=== PATIENT | female | born 1965 | race Caucasian/White ===

== ENCOUNTER 2020-04-01 10:53 | Outpatient (REF) | payer OTHER, SELFPAY | END 2020-04-01 10:54 | disposition home or self-care (01) | LOC: HO.LAB 10:53 | PROVIDERS: Visit Provider Internal Medicine | DX: Z20.828 Contact with and (suspected) exposure to other viral communicable diseases (principal) | CPT/HCPCS: C9803; U0003 ==

== ENCOUNTER 2020-07-11 11:32 | Outpatient (REF) | payer OTHER, SELFPAY ==
[2020-07-11 12:10] LABS: MANUAL DIFF FLAG NO
[2020-07-11 12:19] LABS: Basophils Percent Auto 0.2 % (0-2); Eosinophils Absolute Auto 0.1 X10*3/uL (0.0-0.4); Eosinophils Percent Auto 0.6 % (0-4); Hematocrit 34.1 % (37-47); Imm Gran Abs Auto 0.14 X10*3/uL (0.00-0.03); Imm Gran Pct Auto 1.7 % (0.0-0.4); Lymphocytes Absolute Auto 2.9 X10*3/uL (1.2-4.9); Lymphocytes Percent Auto 36.4 % (20-40); Mean Corpuscular HGB Conc 32.3 g/dl (31.0-35.0); Mean Corpuscular Hemoglobin 33.6 pg (27.0-33.0); Mean Corpuscular Volume 104.3 fL (80-98); Mean Platelet Volume 9.9 fL (9.4-12.3); Monocytes Absolute Auto 0.4 X10*3/uL (0.1-1.2); Monocytes Percent Auto 4.6 % (2-11); Neutrophils Absolute Auto 4.6 X10*3/uL (2.0-8.3); Neutrophils Percent Auto 56.5 % (45-73); Platelet Count 292 X10*3/uL (160-400); Red Blood Count 3.27 X10*6/uL (4.20-5.50); Red Cell Distribution Width 14.8 % (11.0-16.0); White Blood Count 8.1 X10*3/uL (4.8-10.8)
[2020-07-11 12:45] LABS: Glucose Urine UA NEG (NEG); Leukocyte Esterase Urine NEG (NEG); Nitrite Urine NEG (NEG); PH 5.5 (5.0-8.0); Specific Gravity - Urine 1.025 (1.005-1.025); Urine Blood NEG (NEG); Urine Ketones NEG (NEG); Urine Protein NEG (NEG-TRACE)
[2020-07-11 12:48] LABS: Appearance Urine HAZY; Color Urine YELLOW
[2020-07-11 13:34] LABS: Carbon Dioxide 29 mmol/L (22-29); Chloride 98 mmol/L (96-108); Potassium 4.5 mmol/L (3.3-5.1); Sodium 136 mmol/L (135-145)
[2020-07-11 13:35] LABS: Alanine Aminotransferase 22 U/L (0-31); Albumin Level 4.9 g/dL (3.5-5.0); Alkaline Phosphatase 59 U/L (39-117); Anion Gap 14 (12-20); Aspartate Amino Transferase 44 U/L (5-31); Bilirubin Total 0.6 mg/dL (0.0-1.0); Blood Urea Nitrogen 18 mg/dL (9-16); Calcium 9.6 mg/dL (8.4-10.2); Cholesterol 386 mg/dL; Estimated Glomerular Filt Rate 49; Glucose Fasting 87 mg/dL (60-99); HDL Cholesterol 101 mg/dL; LDL Cholesterol Calculated 258 mg/dl; Total Protein 7.5 g/dL (6.5-8.0); Triglycerides 137 mg/dL
[2020-07-11 13:39] LABS: Folate 7.4 ng/mL (> or = 4.0); Vitamin B12 231 pg/mL (200-900)
[2020-07-11 14:26] LABS: Free T4 (Free Thyroxine) < 0.40 ng/dL (0.71-1.85); Vitamin D 25-OH Total < 3.4 ng/mL (>30)
[2020-07-11 14:34] LABS: Thyroid Stimulating Hormone > 100.00 uIU/mL (0.32-4.0)
== END 2020-07-11 11:33 | disposition home or self-care (01) ==
LOC: HO.LAB 11:32
PROVIDERS: PCP Internal Medicine; Visit Provider Internal Medicine
DX: E66.9 Obesity, unspecified (principal); E78.00 Pure hypercholesterolemia, unspecified; E03.9 Hypothyroidism, unspecified; E55.9 Vitamin D deficiency, unspecified; R53.83 Other fatigue; R20.2 Paresthesia of skin; F17.200 Nicotine dependence, unspecified, uncomplicated
CPT/HCPCS: 36415; 80053; 80061; 81003; 82306; 82607; 82746; 84439; 84443; 85025

== ENCOUNTER 2020-10-14 09:32 | Outpatient (REF) | payer OTHER, SELFPAY ==
[2020-10-14 10:07] LABS: MANUAL DIFF FLAG NO
[2020-10-14 10:14] LABS: Basophils Percent Auto 0.3 % (0-2); Eosinophils Absolute Auto 0.1 X10*3/uL (0.0-0.4); Eosinophils Percent Auto 0.9 % (0-4); Hemoglobin 11.8 g/dl (12.0-16.0); Imm Gran Abs Auto 0.02 X10*3/uL (0.00-0.03); Imm Gran Pct Auto 0.3 % (0.0-0.4); Lymphocytes Absolute Auto 2.2 X10*3/uL (1.2-4.9); Lymphocytes Percent Auto 38.1 % (20-40); Mean Corpuscular HGB Conc 32.8 g/dl (31.0-35.0); Mean Corpuscular Hemoglobin 30.7 pg (27.0-33.0); Mean Corpuscular Volume 93.8 fL (80-98); Mean Platelet Volume 10.4 fL (9.4-12.3); Monocytes Absolute Auto 0.4 X10*3/uL (0.1-1.2); Monocytes Percent Auto 6.8 % (2-11); Neutrophils Absolute Auto 3.1 X10*3/uL (2.0-8.3); Neutrophils Percent Auto 53.6 % (45-73); Platelet Count 325 X10*3/uL (160-400); Red Blood Count 3.84 X10*6/uL (4.20-5.50); Red Cell Distribution Width 13.5 % (11.0-16.0); White Blood Count 5.7 X10*3/uL (4.8-10.8)
[2020-10-14 10:33] LABS: Alanine Aminotransferase 9 U/L (0-31); Albumin Level 4.1 g/dL (3.5-5.0); Alkaline Phosphatase 84 U/L (39-117); Anion Gap 15 (12-20); Aspartate Amino Transferase 18 U/L (5-31); Bilirubin Total 0.5 mg/dL (0.0-1.0); Blood Urea Nitrogen 14 mg/dL (9-16); Calcium 9.7 mg/dL (8.4-10.2); Carbon Dioxide 26 mmol/L (22-29); Chloride 102 mmol/L (96-108); Cholesterol 209 mg/dL; Estimated Glomerular Filt Rate > 60; Glucose Fasting 95 mg/dL (60-99); HDL Cholesterol 71 mg/dL; Iron 82 mcg/dL (30-160); LDL Cholesterol Calculated 121 mg/dl; Percent Iron Saturation 22 % (15-50); Potassium 4.5 mmol/L (3.3-5.1); Sodium 138 mmol/L (135-145); Total Iron Binding Capacity 366 mcg/dL (228-428); Total Protein 6.8 g/dL (6.5-8.0); Triglycerides 88 mg/dL; Unsaturated Iron Binding 284 ug/dL
[2020-10-14 10:57] LABS: Free T4 (Free Thyroxine) 1.28 ng/dL (0.71-1.85); Thyroid Stimulating Hormone 0.85 uIU/mL (0.32-4.0)
[2020-10-14 11:39] LABS: Folate 12.1 ng/mL (> or = 4.0); Vitamin B12 < 146 pg/mL (200-900)
[2020-10-15 09:36] LABS: Erythropoietin (EPO) 25.4 mIU/mL (2.6-18.5)
== END 2020-10-14 09:33 | disposition home or self-care (01) ==
LOC: HO.LAB 09:32
PROVIDERS: PCP Internal Medicine; Visit Provider Internal Medicine
DX: D53.9 Nutritional anemia, unspecified (principal); E03.9 Hypothyroidism, unspecified; E66.9 Obesity, unspecified; E78.00 Pure hypercholesterolemia, unspecified; N28.9 Disorder of kidney and ureter, unspecified; F17.200 Nicotine dependence, unspecified, uncomplicated
CPT/HCPCS: 36415; 80053; 80061; 82607; 82668; 82746; 83540; 84439; 84443; 85025

== ENCOUNTER 2020-11-04 08:11 | Outpatient (REF) | payer OTHER, SELFPAY ==
--- NOTE | ~2020-11-04 | MM_ITS ---
EXAMINATION: MM SCREENING DIGITAL BREAST TOMOSYNTHESIS, BILATERAL CLINICAL INFORMATION: Screening. Asymptomatic. The lifetime risk of breast cancer based on the Tyrer-Cuzick Model is 8%. COMPARISON: Mammography: 10/30/2019, 04/15/2016 TECHNIQUE: Digital breast tomosynthesis is performed in both the craniocaudal and mediolateral oblique views along with computer-aided detection (CAD). Synthesized 2D images are generated from the tomosynthesis. FINDINGS: There are scattered areas of fibroglandular density (ACR BI-RADS breast composition Category b). There are no significant masses, abnormal calcifications, or other abnormalities. Parenchymal pattern is similar to prior studies. No significant changes. MM/MM tomosynthesis screening BI IMPRESSION: No mammographic evidence of malignancy. ASSESSMENT: BI-RADS 1: Negative RECOMMENDATION: Routine annual mammography screening. This patient's information was entered into a reminder system with a target due date for their next mammogram.
== END 2020-11-04 08:12 | disposition home or self-care (01) ==
LOC: HO.MAMMO 08:11
PROVIDERS: PCP Internal Medicine; Visit Provider Internal Medicine
DX: Z12.31 Encounter for screening mammogram for malignant neoplasm of breast (principal)
CPT/HCPCS: 77063; 77067

== ENCOUNTER 2021-03-12 11:53 | Outpatient (REF) | payer OTHER, SELFPAY ==
[2021-03-12 12:04] LABS: MANUAL DIFF FLAG NO
[2021-03-12 12:28] LABS: Basophils Percent Auto 0.3 % (0-2); Eosinophils Absolute Auto 0.1 X10*3/uL (0.0-0.4); Eosinophils Percent Auto 1.6 % (0-4); Hematocrit 39.6 % (37.0-47.0); Hemoglobin 12.6 g/dl (12.0-16.0); Imm Gran Abs Auto 0.01 X10*3/uL (0.00-0.03); Imm Gran Pct Auto 0.2 % (0.0-0.4); Lymphocytes Percent Auto 47.7 % (20-40); Mean Corpuscular HGB Conc 31.8 g/dl (31.0-35.0); Mean Corpuscular Hemoglobin 29.1 pg (27.0-33.0); Mean Corpuscular Volume 91.5 fL (80.0-98.0); Monocytes Absolute Auto 0.5 X10*3/uL (0.1-1.2); Monocytes Percent Auto 7.9 % (2-11); Neutrophils Absolute Auto 2.6 x10*3/uL (2.0-8.3); Neutrophils Percent Auto 42.3 % (45-73); Platelet Count 316 X10*3/uL (160-400); Red Blood Count 4.33 X10*6/uL (4.20-5.50); Red Cell Distribution Width 14.1 % (11.0-16.0); White Blood Count 6.2 X10*3/uL (4.8-10.8)
[2021-03-12 12:55] LABS: Alanine Aminotransferase 14 U/L (0-31); Albumin Level 4.1 g/dL (3.5-5.0); Alkaline Phosphatase 78 U/L (39-117); Anion Gap 12 (12-20); Aspartate Amino Transferase 18 U/L (5-31); Bilirubin Total 0.3 mg/dL (0.0-1.0); Blood Urea Nitrogen 10 mg/dL (9-16); Calcium 9.8 mg/dL (8.4-10.2); Carbon Dioxide 27 mmol/L (22-29); Chloride 105 mmol/L (96-108); Cholesterol 251 mg/dL; Estimated Glomerular Filt Rate > 60; Glucose Fasting 98 mg/dL (60-99); HDL Cholesterol 82 mg/dL; LDL Cholesterol Calculated 153 mg/dl; Potassium 4.7 mmol/L (3.3-5.1); Sodium 139 mmol/L (135-145); Total Protein 6.8 g/dL (6.5-8.0); Triglycerides 82 mg/dL
[2021-03-12 13:14] LABS: Free T4 (Free Thyroxine) 1.32 ng/dL (0.71-1.85); Thyroid Stimulating Hormone 0.53 uIU/mL (0.32-4.0); Vitamin D 25-OH Total 61.9 ng/mL (>30)
[2021-03-12 13:24] LABS: Folate 7.2 ng/mL (> or = 4.0); Vitamin B12 575 pg/mL (200-900)
== END 2021-03-12 11:54 | disposition home or self-care (01) ==
LOC: HO.LAB 11:53
PROVIDERS: PCP Internal Medicine; Visit Provider Internal Medicine
DX: E55.9 Vitamin D deficiency, unspecified (principal); E03.9 Hypothyroidism, unspecified; D53.9 Nutritional anemia, unspecified; E53.8 Deficiency of other specified B group vitamins; E78.00 Pure hypercholesterolemia, unspecified
CPT/HCPCS: 36415; 80053; 80061; 82306; 82607; 82746; 84439; 84443; 85025

== ENCOUNTER 2021-07-18 09:51 | Outpatient (REF) | payer OTHER, SELFPAY ==
[2021-07-18 10:12] LABS: MANUAL DIFF FLAG NO
[2021-07-18 10:26] LABS: Basophils Percent Auto 0.3 % (0-2); Eosinophils Absolute Auto 0.1 X10*3/uL (0.0-0.4); Eosinophils Percent Auto 1.1 % (0-4); Hematocrit 41.2 % (37.0-47.0); Hemoglobin 13.5 g/dl (12.0-16.0); Imm Gran Abs Auto 0.01 X10*3/uL (0.00-0.03); Imm Gran Pct Auto 0.2 % (0.0-0.4); Lymphocytes Absolute Auto 2.3 X10*3/uL (1.2-4.9); Lymphocytes Percent Auto 34.9 % (20-40); Mean Corpuscular HGB Conc 32.8 g/dl (31.0-35.0); Mean Corpuscular Hemoglobin 29.3 pg (27.0-33.0); Mean Corpuscular Volume 89.4 fL (80.0-98.0); Mean Platelet Volume 10.5 fL (9.4-12.3); Monocytes Absolute Auto 0.3 X10*3/uL (0.1-1.2); Monocytes Percent Auto 5.1 % (2-11); Neutrophils Absolute Auto 3.8 x10*3/uL (2.0-8.3); Neutrophils Percent Auto 58.4 % (45-73); Platelet Count 330 X10*3/uL (160-400); Red Blood Count 4.61 X10*6/uL (4.20-5.50); Red Cell Distribution Width 13.8 % (11.0-16.0); White Blood Count 6.5 X10*3/uL (4.8-10.8)
[2021-07-18 10:47] LABS: Appearance Urine CLEAR; Color Urine YELLOW; Glucose Urine UA NEG (NEG); Leukocyte Esterase Urine NEG (NEG); Nitrite Urine NEG (NEG); Urine Blood NEG (NEG); Urine Ketones 5 MG/DL (NEG); Urine Protein NEG (NEG-TRACE)
[2021-07-18 11:37] LABS: HDL Cholesterol 82 mg/dL
[2021-07-18 11:41] LABS: Alanine Aminotransferase 19 U/L (0-31); Albumin Level 4.2 g/dL (3.5-5.0); Alkaline Phosphatase 93 U/L (39-117); Anion Gap 13 (12-20); Aspartate Amino Transferase 21 U/L (5-31); Bilirubin Total 0.6 mg/dL (0.0-1.0); Blood Urea Nitrogen 10 mg/dL (9-16); Calcium 9.9 mg/dL (8.4-10.2); Carbon Dioxide 26 mmol/L (22-29); Chloride 104 mmol/L (96-108); Cholesterol 274 mg/dL; Estimated Glomerular Filt Rate > 60; Glucose Fasting 117 mg/dL (60-99); LDL Cholesterol Calculated 174 mg/dl; Potassium 4.8 mmol/L (3.3-5.1); Sodium 138 mmol/L (135-145); Triglycerides 90 mg/dL
[2021-07-18 11:43] LABS: Folate 8.9 ng/mL (> or = 4.0); Vitamin B12 576 pg/mL (200-900)
[2021-07-18 11:50] LABS: Free T4 (Free Thyroxine) 1.25 ng/dL (0.71-1.85); Thyroid Stimulating Hormone 1.39 uIU/mL (0.32-4.0); Vitamin D 25-OH Total 72.8 ng/mL (>30)
== END 2021-07-18 09:52 | disposition home or self-care (01) ==
LOC: HO.LAB 09:51
PROVIDERS: PCP Internal Medicine; Visit Provider Internal Medicine
DX: E78.00 Pure hypercholesterolemia, unspecified (principal); E03.9 Hypothyroidism, unspecified; E53.8 Deficiency of other specified B group vitamins; E55.9 Vitamin D deficiency, unspecified; I10 Essential (primary) hypertension
CPT/HCPCS: 36415; 80053; 80061; 81003; 82306; 82607; 82746; 84439; 84443; 85025

== ENCOUNTER 2021-07-29 11:04 | Outpatient (REF) | payer OTHER, SELFPAY | END 2021-07-29 11:05 | disposition home or self-care (01) | LOC: HO.LAB 11:04 | PROVIDERS: PCP Internal Medicine; Visit Provider Obstetrics & Gynecology | DX: N90.89 Other specified noninflammatory disorders of vulva and perineum (principal) | CPT/HCPCS: 56605; 56606; 88304; 88305; 88312; 99202 ==

== ENCOUNTER → 2021-08-01 10:50 | Outpatient (BNVA) | payer OTHER, SELFPAY | PROVIDERS: PCP Internal Medicine; Referring Provider Internal Medicine; Visit Provider Nurse Practitioner | DX: Z12.11 Encounter for screening for malignant neoplasm of colon (principal); D12.6 Benign neoplasm of colon, unspecified | CPT/HCPCS: 99202 ==

== ENCOUNTER → 2021-08-05 10:18 | Outpatient (BNVA) | payer OTHER, SELFPAY | PROVIDERS: PCP Internal Medicine; Visit Provider Obstetrics & Gynecology | DX: L28.0 Lichen simplex chronicus (principal) | CPT/HCPCS: 99212 ==

== ENCOUNTER 2021-11-06 09:12 | Outpatient (REF) | payer OTHER, SELFPAY ==
--- NOTE | ~2021-11-06 | MM_ITS ---
EXAMINATION: MM SCREENING DIGITAL BREAST TOMOSYNTHESIS, BILATERAL CLINICAL INFORMATION: Screening. Asymptomatic. The lifetime risk of breast cancer based on the Tyrer-Cuzick Model is 4%. COMPARISON: Mammography: 11/04/2020, 10/30/2019, 04/15/2016 TECHNIQUE: Digital breast tomosynthesis is performed in both the craniocaudal and mediolateral oblique views along with computer-aided detection (CAD). Synthesized 2D images are generated from the tomosynthesis. FINDINGS: There are scattered areas of fibroglandular density (ACR BI-RADS breast composition Category b). There are no significant masses, abnormal calcifications, or other abnormalities. Parenchymal pattern is similar to prior studies. The axilla and skin contours are unremarkable. MM/MM tomosynthesis screening BI IMPRESSION: No mammographic evidence of malignancy. ASSESSMENT: BI-RADS 1: Negative RECOMMENDATION: Routine annual mammography screening. This patient's information was entered into a reminder system with a target due date for their next mammogram.
== END 2021-11-06 09:13 | disposition home or self-care (01) ==
LOC: HO.MAMMO 09:12
PROVIDERS: Visit Provider Internal Medicine
DX: Z12.31 Encounter for screening mammogram for malignant neoplasm of breast (principal)
CPT/HCPCS: 77063; 77067

== ENCOUNTER 2021-11-18 11:08 | Day surgery (SDC) | payer OTHER, SELFPAY ==
[2021-11-12 14:33] VITALS: BMI 24.0
[2021-11-18 11:18] VITALS: BMI 22.7
--- NOTE | 2021-11-18 11:25 | MHC.SHP ---
Pre-Procedural Eval Section A Date of Service: 11/18/21 Section B Chief Complaint: Benign neoplasm of colon,screening Relevant Family History (Specify if Yes): No Relevant Social History: Tobacco Use Present Medications: see Short Stay Collaborative assessment Medical History: Significant History (Obesity High cholesterol Hypothyroid Renal insufficiency Macrocytic anemia with B12 deficiency Paresthesias Smoker) History of Previous Operations: Relevant previous surgery/procedure and date(s) (Hx of bariatric surgery Status post total abdominal hysterectomy and bilateral salpingo-oophorectomy (TAE-BSO)) Allergies: Allergies Allergy/AdvReac Type Severity Reaction Status Date / Time aspirin [ASA] Allergy Severe DIFFICULTY Verified 10/31/21 10:00 BREATHING procaine [From Novocain] Allergy Severe DIFFICULTY Verified 10/31/21 10:00 BREATHING novacaine Allergy Severe breathing Uncoded 10/31/21 10:00 difficulty Novocain Allergy Severe breathing Uncoded 10/31/21 10:00 difficulty Review of Systems Sugical H&P ROS: Negative: Constitution, Cardiovascular, Respiratory, Neurological, Psychiatric, Hem-Onc, Allergic/Immunologic, Gastrointestinal, Genitourinary, Musculoskeletal, Integumentary, Endocrine and Eyes/Ears/Nose/Throat Exam Surgical H&P Exam: Normal: HEENT, Normal: Heart, Normal: Lungs, Normal: Extremities, Normal: Abdomen, Normal: Skin and Normal: Neurological Plan Diagnosis/Plan: Unchanged I have reviewed the history and physical and performed a pertinent physical examination on my patient. No changes have occurred unless specified.
[2021-11-18] MEDS: Lactated Ringers 1,000 ML 50 ML IVCONT (11:38)
[2021-11-18 11:39] VITALS: BP 126/72; PULSE 77; RESP 16; TEMP 36.4; O2SAT 99
--- NOTE | 2021-11-18 12:27 | W.PM.OPN ---
Operative Note Operative Note Date of Service: 11/18/21 Narrative: Operative Information Procedure Description: Colonoscopy Indication: screening, hx of colon polyps Anesthesia: MAC COLONOSCOPY Instrument: Olympus variable stiffness pediatric scope 190L Colonoscopy Monitoring: Vital signs and clinical assessment, continuous EKG monitoring, Pulse oximetry, Carbon Dioxide monitoring and blood pressure monitoring were done throughout the procedure. Colon withdrawal time was 15 minutes. Procedure: The patient was placed in the left lateral decubitis position and pre-procedure medications were administered. After a digital rectal examination of the ano-rectum, the video colonoscope was inserted into the rectum and advanced through the colon to the cecum/TI. The colonoscope was slowly withdrawn in a retrograde panoramic fashion and the colon mucosa was carefully examined including a retroflexed view of the rectum. Findings and interventions are described below. Procedure Difficulty: moderate due to looping Findings: Terminal Ileum-normal Cecum:normal Ascending Colon: 10 mm sessile polyp removed with cold snare but not retrieved Transverse Colon -normal Descending Colon: x 2 sessile polyps 10-12 mm removed with cold snare, Sigmoid Colon: x1 sessile polyp 12 mm removed with cold snare Rectum: Retroflexion with small internal hemorrhoids, grade I Anorectum - normal Colon preparation: [place] Bowel Preparation Scale Right colon; 2 Transverse colon: 2 Left colon; 2 (0 = Unprepared colon segment with mucosa not seen due to solid stool that cannot be cleared. 1 = Portion of mucosa of the colon segment seen, but other areas of the colon segment not well seen due to staining, residual stool and/or opaque liquid. 2 = Minor amount of residual staining, small fragments of stool and/or opaque liquid, but mucosa of colon segment seen well. 3 = Entire mucosa of colon segment seen well with no residual staining, small fragments of stool or opaque liquid) Impression and Post Procedure Diagnosis: polyps internal hemorrhoids Plan: High fiber diet leaflet Avoid straining at stool, epsom salts and sitz bath, anusol supps or cream Repeat Colonoscopy in 3-4 years or earlier if clinically indicated Above findings were reviewed with the patient and relevant handouts were provided if indicated.
--- NOTE | 2021-11-18 12:33 | P.CONAN_ITS ---
HPI - Anesthesia Eval Consult details Narrative: 56 F for colonoscopy [facility] Active Problems Active Problems: All Active Problems (Updated 10/31/21 @ 10:43 by Bharath Herndon MD) Fasting hyperglycemia (Acute) Tubular adenoma of colon (Acute) Lichen simplex chronicus (Acute) Vulvar lesion (Acute) Vaginal cysts (Acute) Onychomycosis (Acute) Overweight (BMI 25.0-29.9) (Acute) Colon cancer screening (Acute) Annual physical exam (Acute) Vitamin B12 deficiency (Acute) Macrocytic anemia (Acute) Renal insufficiency (Acute) Paresthesia (Acute) Fatigue (Acute) Obesity (BMI 30.0-34.9) (Acute) Smoker (Acute) Vitamin D deficiency (Acute) Pure hypercholesterolemia (Acute) Acquired hypothyroidism (Acute) Past Medical History Medical History Acquired hypothyroidism Fatigue Macrocytic anemia Obesity (BMI 30.0-34.9) Onychomycosis Overweight (BMI 25.0-29.9) Paresthesia Pure hypercholesterolemia Renal insufficiency Smoker Vitamin B12 deficiency Vitamin D deficiency Family History Family History Father Myocardial infarction Cardiovascular disease Stroke Mother Hypertension Paternal Grandfather Myocardial infarction Maternal Aunt Breast cancer Family history of problems with anesthesia: No Surgical History Surgical History (Updated 11/18/21 @ 12:43 by Yola Wu RN) Hx of bariatric surgery Hx of colonoscopy Status post total abdominal hysterectomy and bilateral salpingo-oophorectomy (TAE-BSO) History of Problems with Anesthesia: No Social History Social History Housing: Apartment Alcohol intake: current Alcohol intake frequency: holidays/special occasions only Patient Tobacco Use Status: Current everyday Tobacco user Cigarettes Per Day: 4 Second Hand Smoke Exposure: Yes Use of substances other than those prescribed or required for medical reasons: No Are you DNR?: No Advance Directives: No Advance Directives Information Provided: Yes service: No Current occupational status: disabled Cognitive needs: No Hearing needs: No Vision needs: No Meds Allergies Allergy/AdvReac Type Severity Reaction Status Date / Time aspirin [ASA] Allergy Severe DIFFICULTY Verified 10/31/21 10:00 BREATHING procaine [From Novocain] Allergy Severe DIFFICULTY Verified 10/31/21 10:00 BREATHING novacaine Allergy Severe breathing Uncoded 10/31/21 10:00 difficulty Novocain Allergy Severe breathing Uncoded 10/31/21 10:00 difficulty Active Medications: Current Medications Lactated Ringer's (Lr) 1,000 mls @ 50 mls/hr IVCONT .Q20H SRAVANTHI Last Admin: 11/18/21 11:38 Dose: 50 mls/hr Exam Exam Date and Time: November 18, 2021 1233 Height,Weight and Vital Signs: Height 5 ft 6 in Weight 63.957 kg Last Vital Signs Temp 97.6 F 11/18/21 11:39 Pulse 77 11/18/21 11:39 Resp 16 11/18/21 11:39 BP 126/72 11/18/21 11:39 Pulse Ox 99 11/18/21 11:39 O2 Del Method 11/18/21 11:39 Airway Mallampati Class: III TM Dist: >3cm Neck ROM: Full Denture: Upper and Lower Loose/Missing/Broken Teeth: Yes Heart: S1,S2 Lungs: b/l breath sounds Assessment and Plan Assessment Anesthesia Assessment: Anesthesia Plan Discussed and Chart Reviewed Final Anesthetic Review Family History of Problems with Anesthesia: No History of Problems with Anesthesia: No NPO: Yes ASA Class: II Final Preanesthetic Review: Meds/Allgs Chart Reviewed, Consent Obtained/Reviewed and Anes Risks/Benef Reviewed Patient Risk: Intermediate Procedure Risk: Intermediate Anesthetic Plan Anesthetic Plan: MAC: Disposition: Standard PACU
[2021-11-18 13:28] VITALS: BP 110/68; PULSE 80; RESP 16; TEMP 36.6; O2SAT 98
[2021-11-18 13:43] VITALS: BP 127/68; PULSE 83; RESP 16; TEMP 36.3; O2SAT 98
== END 2021-11-18 14:11 | disposition home or self-care (01) ==
PROVIDERS: PCP Internal Medicine; Visit Provider Internal Medicine Gastroenterology
PROC: 0DJD8ZZ Inspection of Lower Intestinal Tract, Via Natural or Artificial Opening Endoscopic (ICD-10-PCS; CPT 45378; principal; 2021-11-18 13:40)
DX: Z12.11 Encounter for screening for malignant neoplasm of colon (principal); Z86.010 Personal history of colon polyps; D12.4 Benign neoplasm of descending colon; D12.5 Benign neoplasm of sigmoid colon; K64.0 First degree hemorrhoids; D53.9 Nutritional anemia, unspecified; N28.9 Disorder of kidney and ureter, unspecified; E78.00 Pure hypercholesterolemia, unspecified; E03.9 Hypothyroidism, unspecified; R20.2 Paresthesia of skin; Z88.8 Allergy status to other drugs, medicaments and biological substances; F17.210 Nicotine dependence, cigarettes, uncomplicated; Z98.84 Bariatric surgery status
CPT/HCPCS: 45385; 88305

== ENCOUNTER 2022-03-23 08:28 | Outpatient (REF) | payer OTHER, SELFPAY ==
[2022-03-23 08:49] LABS: MANUAL DIFF FLAG NO
[2022-03-23 09:02] LABS: Basophils Percent Auto 0.4 % (0-2); Eosinophils Absolute Auto 0.2 X10*3/uL (0.0-0.4); Eosinophils Percent Auto 2.2 % (0-4); Hematocrit 40.2 % (37.0-47.0); Hemoglobin 13.4 g/dl (12.0-16.0); Imm Gran Abs Auto 0.04 X10*3/uL (0.00-0.03); Imm Gran Pct Auto 0.6 % (0.0-0.4); Lymphocytes Absolute Auto 2.4 X10*3/uL (1.2-4.9); Mean Corpuscular HGB Conc 33.3 g/dl (31.0-35.0); Mean Corpuscular Hemoglobin 30.8 pg (27.0-33.0); Mean Corpuscular Volume 92.4 fL (80.0-98.0); Mean Platelet Volume 9.9 fL (9.4-12.3); Monocytes Absolute Auto 0.4 X10*3/uL (0.1-1.2); Monocytes Percent Auto 6.1 % (2-11); Neutrophils Absolute Auto 3.8 x10*3/uL (2.0-8.3); Neutrophils Percent Auto 55.7 % (45-73); Platelet Count 408 X10*3/uL (160-400); Red Blood Count 4.35 X10*6/uL (4.20-5.50); Red Cell Distribution Width 13.2 % (11.0-16.0); White Blood Count 6.8 X10*3/uL (4.8-10.8)
[2022-03-23 09:07] LABS: Estimated Average Glucose 105 mg/dL; Hemoglobin A1c % 5.3 %
[2022-03-23 10:09] LABS: Alanine Aminotransferase 11 U/L (0-31); Albumin Level 4.1 g/dL (3.5-5.0); Alkaline Phosphatase 79 U/L (39-117); Anion Gap 14 (12-20); Aspartate Amino Transferase 17 U/L (5-31); Bilirubin Total 0.5 mg/dL (0.0-1.0); Blood Urea Nitrogen 10 mg/dL (9-16); Calcium 9.9 mg/dL (8.4-10.2); Carbon Dioxide 26 mmol/L (22-29); Chloride 102 mmol/L (96-108); Cholesterol 250 mg/dL; Estimated Glomerular Filt Rate > 60; Free T4 (Free Thyroxine) 1.07 ng/dL (0.71-1.85); Glucose Fasting 102 mg/dL (60-99); HDL Cholesterol 94 mg/dL; LDL Cholesterol Calculated 145 mg/dl; Potassium 4.7 mmol/L (3.3-5.1); Sodium 137 mmol/L (135-145); Thyroid Stimulating Hormone 0.58 uIU/mL (0.32-4.0); Total Protein 6.6 g/dL (6.5-8.0); Triglycerides 55 mg/dL; Vitamin D 25-OH Total 66.8 ng/mL (>30)
[2022-03-23 10:25] LABS: Folate 5.3 ng/mL (> or = 4.0); Vitamin B12 1079 pg/mL (200-900)
== END 2022-03-23 08:29 | disposition home or self-care (01) ==
LOC: HO.LAB 08:28
PROVIDERS: PCP Internal Medicine; Visit Provider Internal Medicine
DX: E78.00 Pure hypercholesterolemia, unspecified (principal); E03.9 Hypothyroidism, unspecified; E11.65 Type 2 diabetes mellitus with hyperglycemia; I10 Essential (primary) hypertension; E55.9 Vitamin D deficiency, unspecified; E53.8 Deficiency of other specified B group vitamins
CPT/HCPCS: 36415; 80053; 80061; 82306; 82607; 82746; 83036; 84439; 84443; 85025

== ENCOUNTER 2022-09-22 09:59 | Outpatient (REF) | payer OTHER, SELFPAY ==
[2022-09-22 10:24] LABS: MANUAL DIFF FLAG NO
[2022-09-22 10:53] LABS: Basophils Percent Auto 0.5 % (0-2); Eosinophils Absolute Auto 0.1 X10*3/uL (0.0-0.4); Eosinophils Percent Auto 1.4 % (0-4); Hematocrit 41.6 % (37.0-47.0); Hemoglobin 13.7 g/dl (12.0-16.0); Imm Gran Abs Auto 0.03 X10*3/uL (0.00-0.03); Imm Gran Pct Auto 0.5 % (0.0-0.4); Lymphocytes Absolute Auto 2.2 X10*3/uL (1.2-4.9); Lymphocytes Percent Auto 34.5 % (20-40); Mean Corpuscular HGB Conc 32.9 g/dl (31.0-35.0); Mean Corpuscular Hemoglobin 29.1 pg (27.0-33.0); Mean Corpuscular Volume 88.3 fL (80.0-98.0); Mean Platelet Volume 10.4 fL (9.4-12.3); Monocytes Absolute Auto 0.4 X10*3/uL (0.1-1.2); Monocytes Percent Auto 6.9 % (2-11); Neutrophils Absolute Auto 3.5 x10*3/uL (2.0-8.3); Neutrophils Percent Auto 56.2 % (45-73); Platelet Count 367 X10*3/uL (160-400); Red Blood Count 4.71 X10*6/uL (4.20-5.50); Red Cell Distribution Width 13.2 % (11.0-16.0); White Blood Count 6.2 X10*3/uL (4.8-10.8)
[2022-09-22 11:01] LABS: Estimated Average Glucose 103 mg/dL; Hemoglobin A1c % 5.2 %
[2022-09-22 12:30] LABS: Alanine Aminotransferase 12 U/L (0-31); Albumin Level 4.1 g/dL (3.5-5.0); Alkaline Phosphatase 77 U/L (39-117); Anion Gap 15 (12-20); Aspartate Amino Transferase 15 U/L (5-31); Bilirubin Total 0.3 mg/dL (0.0-1.0); Blood Urea Nitrogen 8 mg/dL (9-16); Calcium 9.8 mg/dL (8.4-10.2); Carbon Dioxide 25 mmol/L (22-29); Chloride 105 mmol/L (96-108); Cholesterol 237 mg/dL; Estimated Glomerular Filt Rate > 60; Folate 6.1 ng/mL (> or = 4.0); Free T4 (Free Thyroxine) 1.66 ng/dL (0.71-1.85); Glucose Fasting 90 mg/dL (60-99); HDL Cholesterol 76 mg/dL; LDL Cholesterol Calculated 144 mg/dl; Potassium 4.7 mmol/L (3.3-5.1); Sodium 140 mmol/L (135-145); Thyroid Stimulating Hormone 0.03 uIU/mL (0.32-4.0); Triglycerides 86 mg/dL; Vitamin B12 1092 pg/mL (200-900)
== END 2022-09-22 10:00 | disposition home or self-care (01) ==
LOC: HO.LAB 09:59
PROVIDERS: PCP Internal Medicine; Visit Provider Internal Medicine
DX: E53.8 Deficiency of other specified B group vitamins (principal); E78.00 Pure hypercholesterolemia, unspecified; I10 Essential (primary) hypertension; R73.01 Impaired fasting glucose; E03.9 Hypothyroidism, unspecified
CPT/HCPCS: 36415; 80053; 80061; 82607; 82746; 83036; 84439; 84443; 85025

== ENCOUNTER 2022-11-09 08:48 | Outpatient (REF) | payer OTHER, SELFPAY ==
--- NOTE | ~2022-11-09 | MM_ITS ---
EXAMINATION: MM SCREENING DIGITAL BREAST TOMOSYNTHESIS, BILATERAL CLINICAL INFORMATION: Screening. Asymptomatic. The lifetime risk of breast cancer based on the Tyrer-Cuzick Model is 2.5%. COMPARISON: Mammography: This study is compared with prior exams dating back to 2016. TECHNIQUE: Digital breast tomosynthesis is performed in both the craniocaudal and mediolateral oblique views along with computer-aided detection (CAD). Synthesized 2D images are generated from the tomosynthesis. FINDINGS: There are scattered areas of fibroglandular density (ACR BI-RADS breast composition Category b). There are no significant masses, abnormal calcifications, or other abnormalities. MM/MM tomosynthesis screening BI IMPRESSION: No mammographic evidence of malignancy. ASSESSMENT: BI-RADS BI-RADS 1 - Negative RECOMMENDATION: Routine annual mammography screening. 1 year F/U This examination should not preclude the clinical evaluation of a suspicious palpable abnormality. This patient's information was entered into a reminder system with a target due date for their next mammogram.
== END 2022-11-09 08:49 | disposition home or self-care (01) ==
LOC: HO.MAMMO 08:48
PROVIDERS: PCP Internal Medicine; Visit Provider Internal Medicine
DX: Z12.31 Encounter for screening mammogram for malignant neoplasm of breast (principal)
CPT/HCPCS: 77063; 77067

== ENCOUNTER → 2022-11-09 09:15 | Outpatient (BNV) | payer OTHER, SELFPAY | PROVIDERS: PCP Internal Medicine; Visit Provider Radiology Diagnostic Radiology | DX: Z12.31 Encounter for screening mammogram for malignant neoplasm of breast (principal) | CPT/HCPCS: 77063; 77067 ==

== ENCOUNTER 2023-03-15 09:26 | Outpatient (REF) | payer OTHER, SELFPAY ==
[2023-03-15 09:47] LABS: MANUAL DIFF FLAG NO
[2023-03-15 10:51] LABS: Basophils Percent Auto 0.6 % (0-2); Eosinophils Absolute Auto 0.1 X10*3/uL (0.0-0.4); Eosinophils Percent Auto 1.3 % (0-4); Hematocrit 39.4 % (37.0-47.0); Hemoglobin 13.1 g/dl (12.0-16.0); Imm Gran Abs Auto 0.03 X10*3/uL (0.00-0.03); Imm Gran Pct Auto 0.4 % (0.0-0.4); Lymphocytes Absolute Auto 3.1 X10*3/uL (1.2-4.9); Lymphocytes Percent Auto 43.1 % (20-40); Mean Corpuscular HGB Conc 33.2 g/dl (31.0-35.0); Mean Corpuscular Hemoglobin 30.2 pg (27.0-33.0); Mean Corpuscular Volume 90.8 fL (80.0-98.0); Mean Platelet Volume 10.4 fL (9.4-12.3); Monocytes Absolute Auto 0.4 X10*3/uL (0.1-1.2); Monocytes Percent Auto 6.2 % (2-11); Neutrophils Absolute Auto 3.4 x10*3/uL (2.0-8.3); Neutrophils Percent Auto 48.4 % (45-73); Platelet Count 342 X10*3/uL (160-400); Red Blood Count 4.34 X10*6/uL (4.20-5.50); Red Cell Distribution Width 14.3 % (11.0-16.0); White Blood Count 7.1 X10*3/uL (4.8-10.8)
[2023-03-15 11:00] LABS: Appearance Urine Clear; Color Urine Yellow; Glucose Urine UA Negative (Negative); Leukocyte Esterase Urine Negative (Negative); Nitrite Urine Negative (Negative); PH 6.5 (5.0-9.0); Urine Blood Negative (Negative); Urine Ketones Negative (Negative); Urine Protein Negative (Neg-Trace)
[2023-03-15 11:06] LABS: Estimated Average Glucose 108 mg/dL; Hemoglobin A1c % 5.4 % (<6.0)
[2023-03-15 11:18] LABS: Alanine Aminotransferase 12 U/L (0-31); Albumin Level 4.3 g/dL (3.5-5.0); Alkaline Phosphatase 89 U/L (39-117); Anion Gap 12 (12-20); Aspartate Amino Transferase 21 U/L (5-31); Bilirubin Total 0.4 mg/dL (0.0-1.0); Blood Urea Nitrogen 9 mg/dL (9-16); Calcium 9.6 mg/dL (8.4-10.2); Carbon Dioxide 27 mmol/L (22-29); Chloride 102 mmol/L (96-108); Cholesterol 263 mg/dL (<200); Estimated Glomerular Filt Rate > 60; Glucose Fasting 100 mg/dL (60-99); HDL Cholesterol 98 mg/dL (>40); LDL Cholesterol Calculated 150 mg/dL (<100); Potassium 4.3 mmol/L (3.3-5.1); Sodium 137 mmol/L (135-145); Total Protein 7.5 g/dL (6.5-8.0); Triglycerides 75 mg/dL (<150)
[2023-03-15 11:37] LABS: Free T4 (Free Thyroxine) 1.15 ng/dL (0.71-1.85); Thyroid Stimulating Hormone 0.52 uIU/mL (0.32-4.0); Vitamin D 25-OH Total 55.9 ng/mL (>30)
[2023-03-15 11:44] LABS: Folate 5.5 ng/mL (> or = 4.0); Vitamin B12 483 pg/mL (200-900)
== END 2023-03-15 09:27 | disposition home or self-care (01) ==
LOC: HO.LAB 09:26
PROVIDERS: PCP Internal Medicine; Visit Provider Internal Medicine
DX: Z00.00 Encounter for general adult medical examination without abnormal findings (principal); E03.9 Hypothyroidism, unspecified; E78.00 Pure hypercholesterolemia, unspecified; R30.0 Dysuria; E53.8 Deficiency of other specified B group vitamins; R73.01 Impaired fasting glucose; D53.9 Nutritional anemia, unspecified; E55.9 Vitamin D deficiency, unspecified
CPT/HCPCS: 36415; 80053; 80061; 81003; 82306; 82607; 82746; 83036; 84439; 84443; 85025

== ENCOUNTER 2023-04-01 10:09 | Outpatient (AMB) | payer OTHER, SELFPAY ==
[2023-04-01 10:14] VITALS: BP 122/76; PULSE 81; O2SAT 98; BMI 24.0
--- NOTE | 2023-04-01 10:14 | MHC.PC.OV ---
Vital Signs 04/01/23 10:14 Height 5 ft 6 in Weight 148 lb 8 oz BMI 24.0 BP 122/76 Blood Pressure Location Lt brachial Position Sitting Pulse 81 Pulse Source Pulse Oximeter Pulse Oximetry (%) 98 Oxygen Delivery Method Room Air Intake Visit Reasons: Annual Exam [employer] Administrator Required: No Accompanied by: Self / Same As Patient Allergies aspirin [ASA] Allergy (Severe, Verified 04/01/23 10:54) DIFFICULTY BREATHING procaine [From Novocain] Allergy (Severe, Verified 04/01/23 10:54) DIFFICULTY BREATHING novacaine Allergy (Severe, Uncoded 04/01/23 10:54) breathing difficulty Novocain Allergy (Severe, Uncoded 04/01/23 10:54) breathing difficulty Medication List - Last Reconciled 04/01/23 by Bharath Herndon MD cholecalciferol (vitamin D3) 50 mcg PO DAILY 90 days levothyroxine 150 mcg PO DAILY 90 days Tobacco use date assessed: 04/01/23 Dental Screening Dental Screen Date: 04/01/23 Did you have a dental visit in the last 12 months?: No Did you have a dental problem in the last 6 months where you did not have access to dental care?: No Was dental information given to patient?: No HPI Annual Exam HPI Details Patient comes in today for her annual physical examination States that she currently feels okay She denies any headaches or dizziness Denies any chest pains, no SOB No nausea/vomiting, no abdominal pain No change in bowel habits noted Denies any acute urinary symptoms Had her follow up labs done a couple of weeks ago - to discuss her results Patient last had her screening colonoscopy done in September 2021 and was advised repeat colonoscopy in 3 to 5 years Her annual mammogram was last done in October 2022; she has not yet scheduled a follow up appt with Dr. Amaro for her annual pap smear and gynecology exam and will try to do so [facility] Medical History Onychomycosis Vitamin B12 deficiency Macrocytic anemia Renal insufficiency Paresthesia Fatigue Smoker Vitamin D deficiency Pure hypercholesterolemia Acquired hypothyroidism Surgical History Hx of colonoscopy Hx of bariatric surgery Status post total abdominal hysterectomy and bilateral salpingo-oophorectomy (TAE-BSO) Family History Father Myocardial infarction Cardiovascular disease Stroke Mother Hypertension Paternal Grandfather Myocardial infarction Maternal Aunt Breast cancer Social History Housing: Apartment Alcohol intake: current Alcohol intake frequency: holidays/special occasions only Patient Tobacco Use Status: Current everyday Tobacco user Cigarettes Per Day: 4 e-Cigarette/Vaping Use: Never Used Second Hand Smoke Exposure: Yes service: No Current occupational status: disabled Cognitive needs: No Hearing needs: No Vision needs: No Female Reproductive History Menstrual Age of Menarche: 12 Questionnaire PHQ-9 Over the last 2 weeks, how often have you been bothered by any of the following problems? 1. Little interest or pleasure in doing things: more than half the days 2. Feeling down, depressed, or hopeless: more than half the days (is being evicted from her apartment and need to leave at the end of the month) 3. Trouble falling or staying asleep, or sleeping too much: more than half the days 4. Feeling tired or having little energy: not at all 5. Poor appetite or overeating: not at all 6. Feeling bad about yourself - or that you are a failure or have let yourself or your family down: not at all 7. Trouble concentrating on things, such as reading the newspaper or watching television: not at all 8. Moving or speaking so slowly that other people could have noticed. Or the opposite - being so fidgety or restless that you have been moving around a lot more than usual: not at all 9. Thoughts that you would be better off or of hurting yourself in some way: not at all Total score: 6 Depression Screening Interpretation: Positive Depression Screening Follow-up: Existing condition and Follow-up Visit Requested Depression Screening Done: Yes 15685 - PHQ-9 Billing: Yes Source: Developed by Drs. Felipe Velazquez, Rosalina Johnson, Choco Joseph and colleagues, with an educational kendall from [employer]. Thrive Questionnaire Date Thrive assessed: 04/01/23 I am a: Patient What is your living situation today?: I have a steady place to live Within the past 12 months, did the food you bought not last and you didn't have the money to get more?: Never true Within the past 12 months, did you worry whether your food would run out before you got money to buy more?: Never true Do you have trouble paying for medicines?: No Do you have trouble getting transportation to medical appointments?: No Do you have trouble paying your heating and electricity bill?: No Do you have trouble taking care of your child, family member or friend?: No Do you have trouble with day-to-day activities such as bathing, preparing meals, shopping, managing finances, etc.?: No Are you currently unemployed and looking for a job?: No Are you interested in more education?: No Please select the resources that you would like help with: None Currently or been in a relationship where the following occur: no concerns reported AUDIT C Alcohol Use Questionnaire (AUDIT-C) 1. How often do you have a drink containing alcohol?: Monthly or less 2. How many drinks containing alcohol do you have on a typical day when you are drinking?: 1 or 2 3. How often do you have six or more drinks on one occasion?: Never Total Score: 1 Score Reviewed/Action Taken: Yes SIRISHA-7 AMB Questionnaire SIRISHA-7 Date SIRISHA - 7 assessed: 04/01/23 Feeling nervous, anxious, or on edge: 2 = More than half the days Not being able to stop or control worryin = More than half the days Worrying too much about different things: 2 = More than half the days Trouble relaxin = More than half the days Being so restless that it is hard to sit still: 2 = More than half the days Becoming easily annoyed or irritable: 2 = More than half the days Feeling afraid as if something awful might happen: 2 = More than half the days Total SIRISHA-7 score (0-4 normal; 5-9 mild; 10-14 moderate; 15-21 severe): 14 Source: Developed by Drs. Felipe Velazquez, Rosalina Johnson, Choco Joseph and colleagues, with an educational kendall from [employer]. Review of Systems Const Denies chills, Denies fatigue, Denies fever(s), Denies headache(s) and Denies malaise Eyes Denies blurry vision, Denies change in vision, Denies irritation and Denies itchy eyes ENT Denies dysphagia, Denies dizziness, Denies otalgia, Denies headache(s), Denies nasal congestion, Denies neck pain, Denies odynophagia, Denies sinus pain and Denies sore throat Card Denies chest pain, Denies rapid heart rate, Denies irregular heart rhythm, Denies palpitations and Denies dyspnea Resp Denies chest congestion, Denies cough, Denies dyspnea and Denies wheezing GI Denies abdominal pain, Denies bloating, Denies constipation, Denies dysphagia, Denies heartburn, Denies diarrhea, Denies nausea, Denies odynophagia and Denies vomiting Denies hematuria, Denies urinary frequency, Denies dysuria, Denies urinary incontinence and Denies urinary urgency Musc Denies back pain, Denies arthralgias, Denies joint swelling, Denies muscle weakness and Denies neck pain Skin/Breast Denies breast pain, Denies breast mass, Denies change in pigmentation, Denies lesions, Denies rash and Denies unusual bruising Neuro Denies dizziness, Denies headache(s) and Denies paresthesias Psych Denies anxiety and Denies depression Endo Denies fatigue and Denies palpitations Roberto/Lymph Denies easy bruising Aller/Immun Denies itchy eyes and Denies wheezing Physical exam (Primary Care) Vital Signs: Last Vital Signs Pulse 81 04/01/23 10:14 BP 122/76 04/01/23 10:14 Pulse Ox 98 04/01/23 10:14 Oxygen Delivery Method Room Air 04/01/23 10:14 BMI result Body Mass Index 24.0 Tobacco/Smoking Status: Tobacco use Status Tobacco use date assessed 04/01/23 04/01/23 10:19 Patient Tobacco Use Status Current everyday Tobacco 04/01/23 10:19 e-Cigarette/Vaping Use Never Used 04/01/23 10:19 PHQ-9: PHQ-9 Score PHQ-9: Total score 6 04/01/23 10:54 Depression Screening Interpretation: Positive Depression Screening Follow-up: Existing condition and Follow-up Visit Requested Thrive Assessment: Date of Thrive Assessment Date Thrive assessed 04/01/23 04/01/23 10:19 Currently or been in a relationship where the following occur: no concerns reported Const General: no acute distress, alert and awake Orientation/consciousness: patient oriented x3 HENMT Head: Yes normocephalic and Yes atraumatic Ears: external ears normal, TM's normal bilaterally and EAC's normal General nose exam: No nasal discharge present Face and sinus: Yes normal facial exam and Yes sinuses nontender Teeth and gingiva: dentition normal Throat: Yes posterior oropharynx normal and Yes tonsils normal (no TP congestion) Eyes Eyelids: Yes eyelids normal Conjunctivae: conjunctivae normal Pupils: Equal, round and reactive pupils present EOM: EOMs intact bilaterally Neck Neck: Yes no lymphadenopathy and Yes supple Thyroid: Thyroid normal Resp Auscultation: clear to auscultation bilaterally, no rales and no wheezes Cardio Rate: regular rate Rhythm: regular rhythm Heart sounds: no murmurs GI Palpation (GI): Soft to palpation, nontender and No hepatosplenomegaly present Auscultation: normal bowel sounds General: Yes no CVA tenderness Back/Spine/Pelvis Back: no CVA tenderness Thoracic/Lumbar Spine: thoracic and lumbar spine normal to inspection Skin Lesions: no lesions Rashes: no rashes Neuro General: patient oriented x3, moves all extremities, no focal motor deficits and CN's II-XI intact bilaterally Cranial nerves: Yes Equal, round and reactive pupils present Cognition (Neuro): normal cognition Gait exam (Neuro): Normal gait present Extrem General: Yes no clubbing, cyanosis or edema Results Reviewed Results Reviewed: Laboratory Tests 03/15/23 03/15/23 09:47 09:50 WBC 7.1 Hgb 13.1 Hct 39.4 Plt Count 342 Sodium 137 Potassium 4.3 Creatinine 0.75 Estimated GFR > 60 Fasting Glucose 100 H Hemoglobin A1c % 5.4 Calcium 9.6 AST 21 ALT 12 Triglycerides 75 Cholesterol 263 H LDL Cholesterol, Calc 150 H HDL Cholesterol 98 Vitamin B12 483 25-OH Vitamin D Total 55.9 Folate 5.5 TSH 0.52 Free T4 1.15 Ur Specific [place] 1.010 Urine Protein Negative Urine Glucose (UA) Negative Urine Blood Negative Assessment and Plan Assessment & Plan (1) Annual physical exam: Code(s): Z00.00 - Encounter for general adult medical examination without abnormal findings Plan: Results of her labs done a couple of weeks ago reviewed and discussed with patient She is up-to-date with her colon cancer screening and annual mammography; has not seen gynecology nor had her annual pap smear and gynecology exam this year yet Patient has never had BMD screening done yet - will send her for BMD for osteoporosis screening (2) Pure hypercholesterolemia: Code(s): E78.00 - Pure hypercholesterolemia, unspecified Plan: Patient is advised that her LDL cholesterol is still elevated and has gone up further to 150 mg/dl on her labs done a couple of weeks ago Reinforced low cholesterol diet Patient now agrees to starting on meds to help lower her cholesterol levels and overall risks Will start her on Atorvastatin 10 mg QD Will recheck labs and fasting lipids in 6 months for follow up (3) Acquired hypothyroidism: Code(s): E03.9 - Hypothyroidism, unspecified Plan: TFTs remain normal on her labs done a couple of weeks ago Continue Levothyroxine 150 mcg QD Will recheck her TFTs in 6 months for follow up (4) Fasting hyperglycemia: Code(s): R73.01 - Impaired fasting glucose Plan: FBS was normal at 100 mg/dl on her most recent labs; HgbA1c remains normal at 5.4% Reinforced low calorie/low carb diet and exercise as tolerated (5) Vitamin D deficiency: Code(s): E55.9 - Vitamin D deficiency, unspecified Plan: Continue Vitamin D3 2000 units QD (6) Vitamin B12 deficiency: Code(s): E53.8 - Deficiency of other specified B group vitamins Plan: Continue Vitamin B12 1000 mcg tablets every other day or every 3 days (7) Macrocytic anemia: Code(s): D53.9 - Nutritional anemia, unspecified Plan: Improved with correction of her Vitamin B12 deficiency - will continue to monitor her CBC regularly (8) Smoker: Code(s): F17.200 - Nicotine dependence, unspecified, uncomplicated Plan: Counseled again on smoking cessation - currently still smokes about 2.5 to 3 cigarettes a week Continue Varenicline 1 mg BID Plan Follow up in 6 months Orders: Orders Comprehensive [place]. Panel Fast 6 Months E78.00 - Pure hypercholesterolemia, unspecified Thyroid Stimulating Hormone 6 Months E03.9 - Hypothyroidism, unspecified XR DEXA axial skeleton 04/01/23 Z78.0 - Asymptomatic menopausal state Complete Blood Count Auto Diff 6 Months I10 - Essential (primary) hypertension Lipid Panel 6 Months E78.00 - Pure hypercholesterolemia, unspecified Free T4 (Free Thyroxine) 6 Months E03.9 - Hypothyroidism, unspecified Vitamin D 25-OH Total 6 Months E55.9 - Vitamin D deficiency, unspecified Medications: New atorvastatin 10 mg PO QPM 90 days 90 tabs 1RF Coding Level of Care Code Est Pt Prev Care 40-64y(80132) Diagnoses Annual physical exam Z00.00 Pure hypercholesterolemia E78.00 Acquired hypothyroidism E03.9 Fasting hyperglycemia R73.01 Vitamin D deficiency E55.9 Vitamin B12 deficiency E53.8 Macrocytic anemia D53.9 Smoker F17.200
== END 2023-04-01 11:03 | disposition home or self-care (01) ==
PROVIDERS: Visit Provider Internal Medicine
DX: Z00.00 Encounter for general adult medical examination without abnormal findings (principal); E78.00 Pure hypercholesterolemia, unspecified; E03.9 Hypothyroidism, unspecified; R73.01 Impaired fasting glucose; E55.9 Vitamin D deficiency, unspecified; E53.8 Deficiency of other specified B group vitamins; D53.9 Nutritional anemia, unspecified; F17.200 Nicotine dependence, unspecified, uncomplicated
CPT/HCPCS: 99396

== ENCOUNTER 2023-09-29 08:58 | Outpatient (REF) | payer OTHER, SELFPAY ==
[2023-09-29 09:10] LABS: MANUAL DIFF FLAG NO
[2023-09-29 09:43] LABS: Basophils Percent Auto 0.4 % (0-2); Eosinophils Absolute Auto 0.1 X10*3/uL (0.0-0.4); Eosinophils Percent Auto 0.9 % (0-4); Hematocrit 40.4 % (37.0-47.0); Hemoglobin 13.5 g/dl (12.0-16.0); Imm Gran Abs Auto 0.04 X10*3/uL (0.00-0.03); Imm Gran Pct Auto 0.5 % (0.0-0.4); Lymphocytes Percent Auto 24.7 % (20-40); Mean Corpuscular HGB Conc 33.4 g/dl (31.0-35.0); Mean Corpuscular Hemoglobin 29.8 pg (27.0-33.0); Mean Corpuscular Volume 89.2 fL (80.0-98.0); Mean Platelet Volume 10.6 fL (9.4-12.3); Monocytes Absolute Auto 0.7 X10*3/uL (0.1-1.2); Neutrophils Absolute Auto 5.1 x10*3/uL (2.0-8.3); Neutrophils Percent Auto 64.5 % (45-73); Platelet Count 307 X10*3/uL (160-400); Red Blood Count 4.53 X10*6/uL (4.20-5.50); Red Cell Distribution Width 13.6 % (11.0-16.0); White Blood Count 7.9 X10*3/uL (4.8-10.8)
[2023-09-29 10:20] LABS: Alanine Aminotransferase 15 U/L (0-31); Albumin Level 4.1 g/dL (3.5-5.0); Alkaline Phosphatase 93 U/L (39-117); Anion Gap 14 (12-20); Aspartate Amino Transferase 23 U/L (5-31); Bilirubin Total 0.5 mg/dL (0.0-1.0); Blood Urea Nitrogen 7 mg/dL (9-16); Calcium 9.8 mg/dL (8.4-10.2); Carbon Dioxide 24 mmol/L (22-29); Chloride 105 mmol/L (96-108); Cholesterol 199 mg/dL (<200); Estimated Glomerular Filt Rate > 60; Glucose Fasting 128 mg/dL (60-99); HDL Cholesterol 77 mg/dL (>40); LDL Cholesterol Calculated 104 mg/dL (<100); Potassium 3.8 mmol/L (3.3-5.1); Sodium 139 mmol/L (135-145); Triglycerides 94 mg/dL (<150)
[2023-09-29 10:39] LABS: Free T4 (Free Thyroxine) 1.74 ng/dL (0.71-1.85); Thyroid Stimulating Hormone 0.03 uIU/mL (0.32-4.0); Vitamin D 25-OH Total 47.7 ng/mL (>30)
== END 2023-09-29 08:59 | disposition home or self-care (01) ==
LOC: HO.LAB 08:58
PROVIDERS: PCP Internal Medicine; Visit Provider Internal Medicine
DX: E78.00 Pure hypercholesterolemia, unspecified (principal); E55.9 Vitamin D deficiency, unspecified; E03.9 Hypothyroidism, unspecified; I10 Essential (primary) hypertension
CPT/HCPCS: 36415; 80053; 80061; 82306; 84439; 84443; 85025

== ENCOUNTER 2023-10-04 10:30 | Outpatient (AMB) | payer OTHER, SELFPAY ==
--- NOTE | 2023-10-04 10:41 | MHC.PC.OV ---
Vital Signs 10/04/23 10:43 Height 5 ft 6 in Weight 150 lb 2 oz BMI 24.2 BP 132/66 Blood Pressure Location Lt brachial Position Sitting Pulse 98 Pulse Source Pulse Oximeter Pulse Oximetry (%) 94 Oxygen Delivery Method Room Air Intake Visit Reasons: hyperlipidemia, hypothyroidism Intake Note: Patient is here to follow up on HLD, Hypothyroidism. Falafel Cart Cook Required: No Supply Chain Systems Manager: Not Required per policy Accompanied by: Self / Same As Patient Allergies aspirin [ASA] Allergy (Severe, Verified 10/04/23 11:17) DIFFICULTY BREATHING procaine [From Novocain] Allergy (Severe, Verified 10/04/23 11:17) DIFFICULTY BREATHING novacaine Allergy (Severe, Uncoded 10/04/23 11:17) breathing difficulty Novocain Allergy (Severe, Uncoded 10/04/23 11:17) breathing difficulty Medication List - Last Reconciled 10/04/23 by Bharath Herndon MD atorvastatin 10 mg PO QPM 90 days cholecalciferol (vitamin D3) 50 mcg PO DAILY 90 days levothyroxine 150 mcg PO DAILY 90 days Tobacco use date assessed: 10/04/23 Dental Screening Dental Screen Date: 10/04/23 Did you have a dental visit in the last 12 months?: Yes Did you have a dental problem in the last 6 months where you did not have access to dental care?: No Was dental information given to patient?: Patient has dentist HPI hyperlipidemia, hypothyroidism HPI Details Patient comes in today for her follow up visit States that she feels okay She denies any headaches or dizziness Denies any chest pains, no SOB No nausea/vomiting, no abdominal pain No change in bowel habits noted She had her follow up labs done a few days ago - to discuss her results [facility] Medical History Onychomycosis Vitamin B12 deficiency Macrocytic anemia Renal insufficiency Paresthesia Fatigue Smoker Vitamin D deficiency Pure hypercholesterolemia Acquired hypothyroidism Surgical History Hx of colonoscopy Hx of bariatric surgery Status post total abdominal hysterectomy and bilateral salpingo-oophorectomy (TAE-BSO) Family History Father Myocardial infarction Cardiovascular disease Stroke Mother Hypertension Paternal Grandfather Myocardial infarction Maternal Aunt Breast cancer Social History Housing: Apartment Alcohol intake: current Alcohol intake frequency: holidays/special occasions only Patient Tobacco Use Status: Current everyday Tobacco user Tobacco use type: Cigarette Cigarette Packs Per Day: 1 Cigarettes Per Day: 15 e-Cigarette/Vaping Use: Never Used Second Hand Smoke Exposure: Yes service: No Current occupational status: disabled Cognitive needs: No Hearing needs: No Vision needs: Yes (Glasses) Female Reproductive History Menstrual Age of Menarche: 12 Questionnaire PHQ-9 Over the last 2 weeks, how often have you been bothered by any of the following problems? 1. Little interest or pleasure in doing things: not at all 2. Feeling down, depressed, or hopeless: not at all 3. Trouble falling or staying asleep, or sleeping too much: not at all 4. Feeling tired or having little energy: not at all 5. Poor appetite or overeating: not at all 6. Feeling bad about yourself - or that you are a failure or have let yourself or your family down: not at all 7. Trouble concentrating on things, such as reading the newspaper or watching television: not at all 8. Moving or speaking so slowly that other people could have noticed. Or the opposite - being so fidgety or restless that you have been moving around a lot more than usual: not at all 9. Thoughts that you would be better off or of hurting yourself in some way: not at all Total score: 0 Depression Screening Interpretation: Negative Depression Screening Done: Yes 16619 - PHQ-9 Billing: Yes Source: Developed by Drs. Felipe Velazquez, Rosalina Johnson, Choco Joseph and colleagues, with an educational kendall from [employer]. Thrive Questionnaire Date Thrive assessed: 10/04/23 I am a: Patient What is your living situation today?: I have a steady place to live Within the past 12 months, did the food you bought not last and you didn't have the money to get more?: Never true Within the past 12 months, did you worry whether your food would run out before you got money to buy more?: Never true Do you have trouble paying for medicines?: No Do you have trouble getting transportation to medical appointments?: No Do you have trouble paying your heating and electricity bill?: No Do you have trouble taking care of your child, family member or friend?: No Do you have trouble with day-to-day activities such as bathing, preparing meals, shopping, managing finances, etc.?: No Are you currently unemployed and looking for a job?: No Are you interested in more education?: No Currently or been in a relationship where the following occur: no concerns reported THRIVE Score: 0 AUDIT C Alcohol Use Questionnaire (AUDIT-C) 1. How often do you have a drink containing alcohol?: Monthly or less 2. How many drinks containing alcohol do you have on a typical day when you are drinking?: 1 or 2 3. How often do you have six or more drinks on one occasion?: Never Total Score: 1 Score Reviewed/Action Taken: Yes SIRISHA-7 AMB Questionnaire SIRISHA-7 Date SIRISHA - 7 assessed: 10/04/23 Feeling nervous, anxious, or on edge: 0 = Not at all Not being able to stop or control worryin = Not at all Worrying too much about different things: 0 = Not at all Trouble relaxin = Not at all Being so restless that it is hard to sit still: 0 = Not at all Becoming easily annoyed or irritable: 0 = Not at all Feeling afraid as if something awful might happen: 0 = Not at all Total SIRISHA-7 score (0-4 normal; 5-9 mild; 10-14 moderate; 15-21 severe): 0 Source: Developed by Drs. Felipe Velazquez, Rosalina Johnson, Choco Joseph and colleagues, with an educational kendall from [employer]. Review of Systems Const Denies chills, Denies fatigue, Denies fever(s) and Denies headache(s) ENT Denies dysphagia, Denies dizziness, Denies otalgia, Denies headache(s), Denies neck pain, Denies odynophagia and Denies sore throat Card Denies chest pain, Denies irregular heart rhythm, Denies palpitations and Denies dyspnea Resp Denies chest congestion, Denies cough and Denies dyspnea GI Denies abdominal pain, Denies constipation, Denies dysphagia, Denies heartburn, Denies diarrhea, Denies nausea, Denies odynophagia and Denies vomiting Denies urinary frequency, Denies dysuria, Denies urinary incontinence and Denies urinary urgency Musc Denies back pain, Denies arthralgias and Denies neck pain Skin/Breast Denies rash Neuro Denies dizziness, Denies headache(s) and Denies paresthesias Psych Denies anxiety and Denies depression Endo Denies fatigue and Denies palpitations Roberto/Lymph Denies easy bruising Physical exam (Primary Care) Vital Signs: Last Vital Signs Pulse 98 10/04/23 10:43 BP 132/66 10/04/23 10:43 Pulse Ox 94 10/04/23 10:43 Oxygen Delivery Method Room Air 10/04/23 10:43 BMI result Body Mass Index 24.2 Tobacco/Smoking Status: Tobacco use Status Tobacco use date assessed 10/04/23 10/04/23 10:48 Patient Tobacco Use Status Current everyday Tobacco 10/04/23 10:48 Tobacco use type Cigarette 10/04/23 10:48 e-Cigarette/Vaping Use Never Used 10/04/23 10:48 PHQ-9: PHQ-9 Score PHQ-9: Total score 0 10/04/23 10:48 Depression Screening Interpretation: Negative Thrive Assessment: Date of Thrive Assessment Date Thrive assessed 10/04/23 10/04/23 10:48 Currently or been in a relationship where the following occur: no concerns reported Const General: no acute distress and alert HENMT Ears: TM's normal bilaterally and EAC's normal Throat: Yes posterior oropharynx normal and Yes tonsils normal (no TP congestion) Neck Neck: Yes no lymphadenopathy and Yes supple Thyroid: Thyroid normal Resp Auscultation: clear to auscultation bilaterally, no rales and no wheezes Cardio Rate: regular rate Rhythm: regular rhythm Heart sounds: no murmurs GI Palpation (GI): Soft to palpation and nontender Auscultation: normal bowel sounds General: Yes no CVA tenderness Back/Spine/Pelvis Back: no CVA tenderness Thoracic/Lumbar Spine: No lumbar spinal tenderness Skin Rashes: no rashes Extrem General: Yes no clubbing, cyanosis or edema Results Reviewed Results Reviewed: Laboratory Tests 03/15/23 09/29/23 09:47 09:09 WBC 7.9 Hgb 13.5 Hct 40.4 Plt Count 307 Sodium 139 Potassium 3.8 Creatinine 0.76 Estimated GFR > 60 Fasting Glucose 128 H Hemoglobin A1c % 5.4 Calcium 9.8 AST 23 ALT 15 Triglycerides 94 Cholesterol 199 LDL Cholesterol, Calc 104 H HDL Cholesterol 77 25-OH Vitamin D Total 47.7 TSH 0.03 L Free T4 1.74 Assessment and Plan Assessment & Plan (1) Pure hypercholesterolemia: Code(s): E78.00 - Pure hypercholesterolemia, unspecified Plan: Results of her labs done a few days ago reviewed and discussed with patient - she is advised that her total and LDL cholesterol levels have improved significantly from previous Reinforced low cholesterol diet Continue Atorvastatin 10 mg QD - states that she has been tolerating her Rx well with no issues Will recheck her labs and fasting lipids in 6 months for follow up (2) Acquired hypothyroidism: Code(s): E03.9 - Hypothyroidism, unspecified Plan: Her serum TSH is now suppressed on her recent labs but her free T4 level remains normal Patient is currently clinically euthyroid Continue Levothyroxine 150 mcg QD Will recheck her TFTs in 6 months for follow up (3) Fasting hyperglycemia: Code(s): R73.01 - Impaired fasting glucose Plan: Her FBS is elevated at 128 mg/dl on her recent labs (was previously normal at 100 mg/dl; her HgbA1c was normal at 5.4% when previously checked) Reinforced low calorie/low carb diet and exercise as tolerated (4) Vitamin D deficiency: Code(s): E55.9 - Vitamin D deficiency, unspecified Plan: Continue Vitamin D3 2000 units QD (5) Vitamin B12 deficiency: Code(s): E53.8 - Deficiency of other specified B group vitamins Plan: Continue Vitamin B12 1000 mcg tablets every other day or every 3 days (6) Macrocytic anemia: Code(s): D53.9 - Nutritional anemia, unspecified Plan: Improved with correction of her Vitamin B12 deficiency - will continue to monitor her CBC regularly (7) Smoker: Code(s): F17.200 - Nicotine dependence, unspecified, uncomplicated Plan: Counseled again on smoking cessation - currently still smokes about 2.5 to 3 cigarettes a week Continue Varenicline 1 mg BID Plan Follow up in 6 months Orders: Orders Complete Blood Count Auto Diff 6 Months D64.9 - Anemia, unspecified Comprehensive [place]. Panel Fast 6 Months E78.00 - Pure hypercholesterolemia, unspecified Lipid Panel 6 Months E78.00 - Pure hypercholesterolemia, unspecified Vitamin D 25-OH Total 6 Months E55.9 - Vitamin D deficiency, unspecified Thyroid Stimulating Hormone 6 Months E03.9 - Hypothyroidism, unspecified Free T4 (Free Thyroxine) 6 Months E03.9 - Hypothyroidism, unspecified Hemoglobin A1c 6 Months E11.9 - Type 2 diabetes mellitus without complications UA CC w/rflx Micro + Cult 6 Months R30.0 - Dysuria Coding Level of Care Code Est Pt Level 4 (35252) Diagnoses Pure hypercholesterolemia E78.00 Acquired hypothyroidism E03.9 Fasting hyperglycemia R73.01 Vitamin D deficiency E55.9 Vitamin B12 deficiency E53.8 Macrocytic anemia D53.9 Smoker F17.200
[2023-10-04 10:43] VITALS: BP 132/66; PULSE 98; O2SAT 94; BMI 24.2
== END 2023-10-04 11:18 | disposition home or self-care (01) ==
PROVIDERS: PCP Internal Medicine; Visit Provider Internal Medicine
DX: E78.00 Pure hypercholesterolemia, unspecified (principal); E03.9 Hypothyroidism, unspecified; R73.01 Impaired fasting glucose; E55.9 Vitamin D deficiency, unspecified; E53.8 Deficiency of other specified B group vitamins; D53.9 Nutritional anemia, unspecified; F17.200 Nicotine dependence, unspecified, uncomplicated
CPT/HCPCS: 99214

== ENCOUNTER 2023-11-17 08:56 | Outpatient (REF) | payer OTHER, SELFPAY ==
--- NOTE | ~2023-11-17 | MM_ITS ---
EXAMINATION: BONE DENSITOMETRY CLINICAL INDICATION: Asymptomatic menopausal state. COMPARISON: Baseline BD dated 04/04/2015. TECHNIQUE: Using a [employer] DXA System (software version: 13.1) manufactured by [employer], dual-energy x-ray absorptiometry was performed of the lumbar spine and left hip. The images are of good technical quality. Summary results are attached. FINDINGS: LEFT FEMUR, NECK: Current: BMD 0.758 g/cm2, Z-score -0.9, T-score -2.0, osteopenia. Baseline: BMD 0.747 g/cm2. LEFT FEMUR, TOTAL: Current: BMD 0.685 g/cm2, Z-score -1.8, T-score -2.6, osteoporosis, 15.1% decrease from baseline (<5% change is not significant). Baseline: BMD 0.807 g/cm2. AP SPINE L1-L4: Current: BMD 1.043 g/cm2, Z-score -0.1, T-score -1.1, osteopenia, 3.6% decrease from baseline (<5% change is not significant). Baseline: BMD 1.082 g/cm2. IDENTIFIED RISK FACTORS: Early menopause, secondary osteoporosis, hysterectomy, bilateral oophorectomy, height loss, low calcium intake, current smoker. HISTORY OF FRACTURE: None listed. MEDICATIONS: Vitamin D. MM/XR DEXA axial skeleton IMPRESSION: 1. DIAGNOSIS: Osteoporosis based on the lowest T-score value of -2.6 in the total femur applying World Health Organization criteria. 2. 10-YEAR FRACTURE RISK PREDICTION, FRAX: According to the guidelines, FRAX calculation should only be performed on patients in the osteopenia bone density category. Therefore, FRAX was not performed on this patient. 3. Treatment Recommendations: NOF guidelines recommend consideration for treatment in postmenopausal women and men age 50 and older presenting with the following: -A hip or vertebral (clinical or morphometric) fracture. -T-score less than or equal to -2.5 at the femoral neck or spine after appropriate evaluation to exclude secondary causes. -Low bone mass at the hip or spine and a 10-year fracture probability by FRAX of greater than or equal to 3% for hip fracture or greater than or equal to 20% for major osteoporotic fracture based on the [place] adapted WHO algorithm. 4. Other Recommendations: All treatment decisions require clinical judgment and consideration of individual patient factors, including patient preferences, comorbidities, previous drug use, risk factors not captured in the FRAX model (e.g. frailty, falls, vitamin D deficiency, increased bone turnover, interval significant decline in bone density) and possible under or overestimation of fracture risk by FRAX. Additional medical evaluation for secondary cause of low bone mineral density may be appropriate. FUTURE SCAN RECOMMENDATION: People with diagnosed cases of osteoporosis or at high risk for fracture should have regular bone mineral density tests. For patients eligible for Medicare, routine testing is allowed once every 2 years. The testing frequency can be increased to one year for patients who have rapidly progressing disease, those who are receiving or discontinuing medical therapy to restore bone mass, or have additional risk factors.
== END 2023-11-17 08:57 | disposition home or self-care (01) ==
LOC: HO.MAMMO 08:56
PROVIDERS: PCP Internal Medicine; Visit Provider Internal Medicine
DX: Z12.31 Encounter for screening mammogram for malignant neoplasm of breast (principal); Z13.820 Encounter for screening for osteoporosis; Z78.0 Asymptomatic menopausal state
CPT/HCPCS: 77063; 77067; 77080

== ENCOUNTER → 2023-11-17 09:45 | Outpatient (BNV) | payer OTHER, SELFPAY | PROVIDERS: PCP Internal Medicine; Visit Provider Radiology Diagnostic Radiology | DX: Z12.31 Encounter for screening mammogram for malignant neoplasm of breast (principal) | CPT/HCPCS: 77063; 77067 ==

== ENCOUNTER 2024-03-27 08:11 | Outpatient (REF) | payer OTHER, SELFPAY ==
[2024-03-27 08:31] LABS: MANUAL DIFF FLAG NO
[2024-03-27 08:48] LABS: Basophils Percent Auto 0.4 % (0-2); Eosinophils Absolute Auto 0.1 X10*3/uL (0.0-0.4); Eosinophils Percent Auto 0.6 % (0-4); Hematocrit 44.2 % (37.0-47.0); Hemoglobin 14.8 g/dl (12.0-16.0); Imm Gran Abs Auto 0.04 X10*3/uL (0.00-0.03); Imm Gran Pct Auto 0.5 % (0.0-0.4); Lymphocytes Absolute Auto 2.3 X10*3/uL (1.2-4.9); Lymphocytes Percent Auto 28.2 % (20-40); Mean Corpuscular HGB Conc 33.5 g/dl (31.0-35.0); Mean Corpuscular Hemoglobin 31.4 pg (27.0-33.0); Mean Corpuscular Volume 93.8 fL (80.0-98.0); Mean Platelet Volume 10.4 fL (9.4-12.3); Monocytes Absolute Auto 0.5 X10*3/uL (0.1-1.2); Monocytes Percent Auto 5.8 % (2-11); Neutrophils Absolute Auto 5.2 x10*3/uL (2.0-8.3); Neutrophils Percent Auto 64.5 % (45-73); Platelet Count 341 X10*3/uL (160-400); Red Blood Count 4.71 X10*6/uL (4.20-5.50); Red Cell Distribution Width 13.8 % (11.0-16.0); White Blood Count 8.1 X10*3/uL (4.8-10.8)
[2024-03-27 08:55] LABS: Appearance Urine Clear; Color Urine Yellow; Glucose Urine UA Negative (Negative); Leukocyte Esterase Urine Negative (Negative); Nitrite Urine Negative (Negative); PH 5.5 (5.0-9.0); Urine Blood Negative (Negative); Urine Ketones Trace mg/dL (Negative); Urine Protein Trace mg/dL (Neg-Trace)
[2024-03-27 09:20] LABS: Estimated Average Glucose 111 mg/dL; Hemoglobin A1C 136.1429 umol/L; Hemoglobin A1c % 5.5 % (<6.0)
[2024-03-27 09:30] LABS: Alanine Aminotransferase 17 U/L (0-31); Albumin Level 4.4 g/dL (3.5-5.0); Alkaline Phosphatase 108 U/L (39-117); Anion Gap 14 (12-20); Aspartate Amino Transferase 28 U/L (5-31); Bilirubin Total 0.6 mg/dL (0.0-1.0); Blood Urea Nitrogen 6 mg/dL (9-16); Calcium 10.4 mg/dL (8.4-10.2); Carbon Dioxide 26 mmol/L (22-29); Chloride 102 mmol/L (96-108); Cholesterol 236 mg/dL (<200); Estimated Glomerular Filt Rate > 60; Glucose Fasting 122 mg/dL (60-99); HDL Cholesterol 97 mg/dL (>40); LDL Cholesterol Calculated 119 mg/dL (<100); Potassium 4.1 mmol/L (3.3-5.1); Sodium 138 mmol/L (135-145); Total Protein 7.6 g/dL (6.5-8.0); Triglycerides 104 mg/dL (<150)
[2024-03-27 09:46] LABS: Free T4 (Free Thyroxine) 1.28 ng/dL (0.71-1.85); Vitamin D 25-OH Total 47.6 ng/mL (>30)
== END 2024-03-27 08:12 | disposition home or self-care (01) ==
LOC: HO.LAB 08:11
PROVIDERS: PCP Internal Medicine; Visit Provider Internal Medicine
DX: D64.9 Anemia, unspecified (principal); E03.9 Hypothyroidism, unspecified; E78.00 Pure hypercholesterolemia, unspecified; E55.9 Vitamin D deficiency, unspecified; E11.9 Type 2 diabetes mellitus without complications; R30.0 Dysuria
CPT/HCPCS: 36415; 80053; 80061; 81003; 82306; 83036; 84439; 84443; 85025

== ENCOUNTER 2024-04-04 09:25 | Outpatient (AMB) | payer OTHER, SELFPAY ==
[2024-04-04 09:48] VITALS: BP 112/78; PULSE 84; O2SAT 97; BMI 24.1
--- NOTE | 2024-04-04 09:48 | A.OFFPC_ITS ---
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 Accompanied by: Self / Same As Patient Allergies aspirin [ASA] Allergy (Severe, Verified 04/04/24 10:03) DIFFICULTY BREATHING procaine [From Novocain] Allergy (Severe, Verified 04/04/24 10:03) DIFFICULTY BREATHING novacaine Allergy (Severe, Uncoded 04/04/24 10:03) breathing difficulty Novocain Allergy (Severe, Uncoded 04/04/24 10:03) breathing difficulty Medication List - Last Reconciled 04/04/24 by Bharath Herndon MD atorvastatin 10 mg PO QPM 90 days cholecalciferol (vitamin D3) 50 mcg PO DAILY 90 days levothyroxine 150 mcg PO DAILY 90 days Tobacco use date assessed: 04/04/24 Dental Screening Dental Screen Date: 04/04/24 Did you have a dental visit in the last 12 months?: Yes Did you have a dental problem in the last 6 months where you did not have access to dental care?: No Was dental information given to patient?: Patient has dentist HPI 6 Month F/U HPI Details Patient comes in today for her follow-up visit States that she feels okay She denies any headaches or dizziness Denies any chest pain, no shortness of breath No nausea/vomiting, no abdominal pain No change in bowel habits noted Needs her vitamin D Rx refilled She would also like to get a prescription for some nicotine patches to help her quit smoking She had her follow-up labs done last week - to discuss her results [facility] Medical History (Updated 04/09/24 @ 22:57 by Bharath Herndon MD) Impaired fasting glucose Onychomycosis Vitamin B12 deficiency Macrocytic anemia Renal insufficiency Paresthesia Fatigue Smoker Vitamin D deficiency Pure hypercholesterolemia Acquired hypothyroidism Surgical History Hx of colonoscopy Hx of bariatric surgery Status post total abdominal hysterectomy and bilateral salpingo-oophorectomy (TAE-BSO) Family History Father Myocardial infarction Cardiovascular disease Stroke Mother Hypertension Paternal Grandfather Myocardial infarction Maternal Aunt Breast cancer Social History Housing: Apartment Alcohol intake: current Alcohol intake frequency: holidays/special occasions only Patient Tobacco Use Status: Current everyday Tobacco user Tobacco use type: Cigarette Cigarette Packs Per Day: 1 Cigarettes Per Day: 15 e-Cigarette/Vaping Use: Never Used Second Hand Smoke Exposure: Yes service: No Current occupational status: disabled Cognitive needs: No Hearing needs: No Vision needs: Yes (Glasses) Female Reproductive History Menstrual Age of Menarche: 12 Questionnaire PHQ-9 Over the last 2 weeks, how often have you been bothered by any of the following problems? 1. Little interest or pleasure in doing things: not at all 2. Feeling down, depressed, or hopeless: not at all 3. Trouble falling or staying asleep, or sleeping too much: not at all 4. Feeling tired or having little energy: not at all 5. Poor appetite or overeating: not at all 6. Feeling bad about yourself - or that you are a failure or have let yourself or your family down: not at all 7. Trouble concentrating on things, such as reading the newspaper or watching television: not at all 8. Moving or speaking so slowly that other people could have noticed. Or the opposite - being so fidgety or restless that you have been moving around a lot more than usual: not at all 9. Thoughts that you would be better off or of hurting yourself in some way: not at all Total score: 0 Depression Screening Interpretation: Negative Depression Screening Done: Yes 88229 - PHQ-9 Billing: Yes Source: Developed by Drs. Felipe Velazquez, Rosalina Johnson, Choco Joseph and colleagues, with an educational kendall from [employer]. Thrive Questionnaire Date Thrive assessed: 04/04/24 I am a: Patient What is your living situation today?: I have a steady place to live Within the past 12 months, did the food you bought not last and you didn't have the money to get more?: Never true Within the past 12 months, did you worry whether your food would run out before you got money to buy more?: Never true Do you have trouble paying for medicines?: No Do you have trouble getting transportation to medical appointments?: No Do you have trouble paying your heating and electricity bill?: No Do you have trouble taking care of your child, family member or friend?: No Do you have trouble with day-to-day activities such as bathing, preparing meals, shopping, managing finances, etc.?: No Are you currently unemployed and looking for a job?: No Are you interested in more education?: No Please select the resources that you would like help with: None Currently or been in a relationship where the following occur: No concerns reported THRIVE Score: 0 AUDIT C Alcohol Use Questionnaire (AUDIT-C) 1. How often do you have a drink containing alcohol?: Monthly or less 2. How many drinks containing alcohol do you have on a typical day when you are drinking?: 1 or 2 3. How often do you have six or more drinks on one occasion?: Never Total Score: 1 Score Reviewed/Action Taken: Yes SIRISHA-7 AMB Questionnaire SIRISHA-7 Date SIRISHA - 7 assessed: 04/04/24 Feeling nervous, anxious, or on edge: 0 = Not at all Not being able to stop or control worryin = Not at all Worrying too much about different things: 0 = Not at all Trouble relaxin = Not at all Being so restless that it is hard to sit still: 0 = Not at all Becoming easily annoyed or irritable: 0 = Not at all Feeling afraid as if something awful might happen: 0 = Not at all Total SIRISHA-7 score (0-4 normal; 5-9 mild; 10-14 moderate; 15-21 severe): 0 Source: Developed by Drs. Felipe Velazquez, Rosalina Johnson, Choco Joseph and colleagues, with an educational kendall from [employer]. Review of Systems Const Denies chills, Denies fatigue, Denies fever(s) and Denies headache(s) ENT Denies dysphagia, Denies dizziness, Denies otalgia, Denies headache(s), Denies neck pain, Denies odynophagia and Denies sore throat Card Denies chest pain, Denies irregular heart rhythm, Denies palpitations and Denies dyspnea Resp Denies chest congestion, Denies cough and Denies dyspnea GI Denies abdominal pain, Denies constipation, Denies dysphagia, Denies heartburn, Denies diarrhea, Denies nausea, Denies odynophagia and Denies vomiting Denies urinary frequency, Denies dysuria, Denies urinary incontinence and Denies urinary urgency Musc Denies back pain, Denies arthralgias and Denies neck pain Skin/Breast Denies rash Neuro Denies dizziness, Denies headache(s) and Denies paresthesias Psych Denies anxiety and Denies depression Endo Denies fatigue and Denies palpitations Roberto/Lymph Denies easy bruising Physical exam (Primary Care) Vital Signs: Last Vital Signs Pulse 84 04/04/24 09:48 BP 112/78 04/04/24 09:48 Pulse Ox 97 04/04/24 09:48 Oxygen Delivery Method Room Air 04/04/24 09:48 BMI result Body Mass Index 24.1 Tobacco/Smoking Status: Tobacco use Status Tobacco use date assessed 04/04/24 04/04/24 09:52 Patient Tobacco Use Status Current everyday Tobacco 04/04/24 09:52 Tobacco use type Cigarette 04/04/24 09:52 e-Cigarette/Vaping Use Never Used 04/04/24 09:52 PHQ-9: PHQ-9 Score PHQ-9: Total score 0 04/04/24 10:04 Depression Screening Interpretation: Negative Thrive Assessment: Date of Thrive Assessment Date Thrive assessed 04/04/24 04/04/24 09:52 Currently or been in a relationship where the following occur: No concerns reported Const General: no acute distress and alert HENMT Ears: TM's normal bilaterally and EAC's normal Throat: Yes posterior oropharynx normal and Yes tonsils normal (no TP congestion) Neck Neck: Yes supple and No lymphadenopathy Thyroid: Thyroid normal Resp Auscultation: clear to auscultation bilaterally, no rales and no wheezes Cardio Rate: regular rate Rhythm: regular rhythm Heart sounds: no murmurs GI Palpation (GI): Soft to palpation and nontender Auscultation: normal bowel sounds General: Yes no CVA tenderness Back/Spine/Pelvis Back: no CVA tenderness Thoracic/Lumbar Spine: No lumbar spinal tenderness Skin Rashes: no rashes Extrem General: Yes no clubbing, cyanosis or edema Results Reviewed Results Reviewed: Laboratory Tests 03/27/24 08:30 WBC 8.1 Hgb 14.8 Hct 44.2 Plt Count 341 Sodium 138 Potassium 4.1 Creatinine 0.88 Estimated GFR > 60 Fasting Glucose 122 H Hemoglobin A1c % 5.5 Calcium 10.4 H D AST 28 ALT 17 Triglycerides 104 Cholesterol 236 H LDL Cholesterol, Calc 119 H HDL Cholesterol 97 25-OH Vitamin D Total 47.6 TSH 1.50 Free T4 1.28 Ur Specific [place] 1.010 Urine Protein Trace Urine Glucose (UA) Negative Urine Blood Negative Urine Nitrite Negative Ur Leukocyte Esterase Negative Coding Level of Care Code Est Pt Level 4 (98938) Diagnoses Pure hypercholesterolemia E78.00 Acquired hypothyroidism E03.9 Impaired fasting glucose R73.01 Vitamin D deficiency E55.9 Vitamin B12 deficiency E53.8 Macrocytic anemia D53.9 Smoker F17.200 Additional Codes PHQ-9 - 24612 - PHQ-9 Billing: Yes ([id number]) Assessment & Plan Assessment & Plan (1) Pure hypercholesterolemia: Code(s): E78.00 - Pure hypercholesterolemia, unspecified Category: Medical Plan: Results of her labs done last week reviewed and discussed with patient Reinforced low cholesterol diet Continue Atorvastatin 10 mg QD Will recheck her labs and fasting lipids in 6 months for follow up (2) Acquired hypothyroidism: Code(s): E03.9 - Hypothyroidism, unspecified Category: Medical Plan: Her serum TSH and free T4 level are both normal on her recent lab Patient is currently clinically euthyroid Continue Levothyroxine 150 mcg QD Will recheck her TFTs in 6 months for follow up (3) Impaired fasting glucose: Code(s): R73.01 - Impaired fasting glucose Category: Medical Plan: Her FBS is again elevated at 122 mg/dl on her recent labs; HgbA1c was normal at 5.5% Reinforced low calorie/low carb diet and exercise as tolerated (4) Vitamin D deficiency: Code(s): E55.9 - Vitamin D deficiency, unspecified Category: Medical Plan: Continue Vitamin D3 2000 units QD - Rx refilled (5) Vitamin B12 deficiency: Code(s): E53.8 - Deficiency of other specified B group vitamins Category: Medical Plan: Continue Vitamin B12 1000 mcg tablets every 2 to 3 days (6) Macrocytic anemia: Code(s): D53.9 - Nutritional anemia, unspecified Category: Medical Plan: Improved with correction of her Vitamin B12 deficiency - will continue to monitor her CBC regularly (7) Smoker: Code(s): F17.200 - Nicotine dependence, unspecified, uncomplicated Category: Social Hx Plan: Patient is counseled again on smoking cessation Per request, we will start her on nicotine patches to help her quit smoking Plan Follow up in 6 months Orders: Orders Comprehensive [place]. Panel Fast 6 Months E78.00 - Pure hypercholesterolemia, unspecified Free T4 (Free Thyroxine) 6 Months E03.9 - Hypothyroidism, unspecified Hemoglobin A1c 6 Months R73.01 - Impaired fasting glucose Lipid Panel 6 Months E78.00 - Pure hypercholesterolemia, unspecified Thyroid Stimulating Hormone 6 Months E03.9 - Hypothyroidism, unspecified Complete Blood Count Auto Diff 6 Months D64.9 - Anemia, unspecified UA CC w/rflx Micro + Cult 6 Months R30.0 - Dysuria Vitamin B12 and Folate 6 Months E53.8 - Deficiency of other specified B group vitamins Vitamin D 25-OH Total 6 Months E55.9 - Vitamin D deficiency, unspecified Medications: New nicotine 1 patch transdermal DAILY 7 days 7 ea 0RF F17.200 - Nicotine dependence, unspecified, uncomplicated nicotine 1 patch transdermal Q24H 28 days 28 ea 5RF F17.200 - Nicotine dependence, unspecified, uncomplicated nicotine 1 patch transdermal DAILY 7 days 7 ea 0RF F17.200 - Nicotine dependence, unspecified, uncomplicated Refilled cholecalciferol (vitamin D3) 50 mcg PO DAILY 90 days 90 caps 3RF E55.9 - Vitamin D deficiency, unspecified
== END 2024-04-04 10:13 | disposition home or self-care (01) ==
PROVIDERS: PCP Internal Medicine; Visit Provider Internal Medicine
DX: E78.00 Pure hypercholesterolemia, unspecified (principal); E03.9 Hypothyroidism, unspecified; R73.01 Impaired fasting glucose; E55.9 Vitamin D deficiency, unspecified; E53.8 Deficiency of other specified B group vitamins; D53.9 Nutritional anemia, unspecified; F17.200 Nicotine dependence, unspecified, uncomplicated

== ENCOUNTER → 2024-04-04 09:25 | Outpatient (BNVA) | payer OTHER, SELFPAY | PROVIDERS: PCP Internal Medicine; Visit Provider Internal Medicine | DX: E78.00 Pure hypercholesterolemia, unspecified (principal); E03.9 Hypothyroidism, unspecified; R73.01 Impaired fasting glucose; E55.9 Vitamin D deficiency, unspecified; E53.8 Deficiency of other specified B group vitamins; D53.9 Nutritional anemia, unspecified; F17.200 Nicotine dependence, unspecified, uncomplicated; Z71.6 Tobacco abuse counseling | CPT/HCPCS: 96127; 99212 ==

== ENCOUNTER 2024-10-26 11:23 | Outpatient (AMB) | payer OTHER, SELFPAY ==
--- NOTE | 2024-10-26 11:33 | A.OFFPC_ITS ---
Vital Signs 10/26/24 11:34 Height 5 ft 6 in Weight 151 lb BMI 24.4 BP 104/68 Blood Pressure Location Lt brachial Position Sitting Pulse 97 Temp Source Temporal Artery Scan Pulse Oximetry (%) 97 Oxygen Delivery Method Room Air Intake Visit Reasons: 6mth f/u Health Information Technologist Required: No Accompanied by: Self / Same As Patient Allergies aspirin (ASA) Allergy (Severe, Verified 10/26/24 11:41) DIFFICULTY BREATHING procaine (From Novocain) Allergy (Severe, Verified 10/26/24 11:41) DIFFICULTY BREATHING novacaine Allergy (Severe, Uncoded 10/26/24 11:41) breathing difficulty Novocain Allergy (Severe, Uncoded 10/26/24 11:41) breathing difficulty Medication List - Last Reconciled 11/19/24 by CRYSTAL Calderón atorvastatin 10 mg PO QPM 90 days cholecalciferol (vitamin D3) 50 mcg PO DAILY 90 days levothyroxine 150 mcg PO DAILY 90 days nicotine 1 patch transdermal Q24H 28 days nicotine 1 patch transdermal DAILY 7 days nicotine 1 patch transdermal DAILY 7 days Tobacco use date assessed: 10/26/24 Dental Screening Dental Screen Date: 10/26/24 HPI 6mth f/u HPI Details The patient is a 59 year female presenting for follow appt Reports that her first appt was cancelled, so this threw her off and she did not get her follow labs done Reports that she is feeling go today Reports that her insurance did not cover the nicotine patches and now she went back to 6 or 7 cigarettes a day She is requesting for the patches to be reordered, so she could try again denies chest pain, sob, heart palpitation no abdominal pain/no change in bowel habits no urinary symptoms PFSH Medical History Impaired fasting glucose Onychomycosis Vitamin B12 deficiency Macrocytic anemia Renal insufficiency Paresthesia Fatigue Smoker Vitamin D deficiency Pure hypercholesterolemia Acquired hypothyroidism Surgical History Hx of colonoscopy Hx of bariatric surgery Status post total abdominal hysterectomy and bilateral salpingo-oophorectomy (TAE-BSO) Family History Father Myocardial infarction Cardiovascular disease Stroke Mother Hypertension Paternal Grandfather Myocardial infarction Maternal Aunt Breast cancer Social History Housing: Apartment Alcohol intake: current Alcohol intake frequency: holidays/special occasions only Patient Tobacco Use Status: Current everyday Tobacco user Tobacco use type: Cigarette Cigarette Packs Per Day: 1 Cigarettes Per Day: 15 e-Cigarette/Vaping Use: Never Used Second Hand Smoke Exposure: Yes service: No Current occupational status: disabled Cognitive needs: No Hearing needs: No Vision needs: Yes (Glasses) Female Reproductive History Menstrual Age of Menarche: 12 Questionnaire PHQ-9 Over the last 2 weeks, how often have you been bothered by any of the following problems? 1. Little interest or pleasure in doing things: not at all 2. Feeling down, depressed, or hopeless: not at all 3. Trouble falling or staying asleep, or sleeping too much: nearly every day 4. Feeling tired or having little energy: not at all 5. Poor appetite or overeating: not at all 6. Feeling bad about yourself - or that you are a failure or have let yourself or your family down: not at all 7. Trouble concentrating on things, such as reading the newspaper or watching television: not at all 8. Moving or speaking so slowly that other people could have noticed. Or the opposite - being so fidgety or restless that you have been moving around a lot more than usual: not at all 9. Thoughts that you would be better off or of hurting yourself in some way: not at all Total score: 3 Depression Screening Interpretation: Negative Depression Screening Done: Yes 84321 - PHQ-9 Billing: Yes Source: Developed by Drs. Felipe Velazquez, Rosalina Johnson, Choco Joseph and colleagues, with an educational kendall from [employer]. Thrive Questionnaire Date Thrive assessed: 10/26/24 I am a: Patient What is your living situation today?: I have a steady place to live Within the past 12 months, did the food you bought not last and you didn't have the money to get more?: Never true Within the past 12 months, did you worry whether your food would run out before you got money to buy more?: Never true Do you have trouble paying for medicines?: No Do you have trouble getting transportation to medical appointments?: No Do you have trouble paying your heating and electricity bill?: No Do you have trouble taking care of your child, family member or friend?: No Do you have trouble with day-to-day activities such as bathing, preparing meals, shopping, managing finances, etc.?: No Are you currently unemployed and looking for a job?: No Are you interested in more education?: No Please select the resources that you would like help with: None Currently or been in a relationship where the following occur: No concerns reported THRIVE Score: 0 AUDIT C Alcohol Use Questionnaire (AUDIT-C) 1. How often do you have a drink containing alcohol?: Monthly or less 2. How many drinks containing alcohol do you have on a typical day when you are drinking?: 1 or 2 3. How often do you have six or more drinks on one occasion?: Never Total Score: 1 Score Reviewed/Action Taken: Yes SIRISHA-7 AMB Questionnaire SIRISHA-7 Date SIRISHA - 7 assessed: 10/26/24 Feeling nervous, anxious, or on edge: 0 = Not at all Not being able to stop or control worryin = Not at all Worrying too much about different things: 0 = Not at all Trouble relaxin = Not at all Being so restless that it is hard to sit still: 0 = Not at all Becoming easily annoyed or irritable: 0 = Not at all Feeling afraid as if something awful might happen: 0 = Not at all Total SIRISHA-7 score (0-4 normal; 5-9 mild; 10-14 moderate; 15-21 severe): 0 Source: Developed by Drs. Felipe Velazquez, Rosalina Johnson, Choco Joseph and colleagues, with an educational kendall from [employer]. SIRISHA-7 Assessment Billing SIRISHA-7 Assessment Tool: SIRISHA-7 Assessment 28931 Review of Systems Const Denies body aches, Denies chills, Denies fever(s), Denies headache(s) and Denies poor appetite Eyes Reports no additional complaints ENT Denies dysphagia, Denies dizziness, Denies headache(s) and Denies odynophagia Card Denies chest pain, Denies syncope, Denies edema, Denies irregular heart rhythm, Denies lightheadedness and Denies dyspnea Resp Denies cough and Denies dyspnea GI Denies abdominal pain, Denies constipation, Denies dysphagia, Denies diarrhea, Denies nausea, Denies odynophagia and Denies vomiting Reports no additional complaints Musc Reports no additional complaints and Denies abnormal gait Skin/Breast Reports system reviewed and no additional complaints, except as documented Neuro Denies abnormal gait, Denies dizziness, Denies syncope and Denies headache(s) Psych Reports no additional complaints Physical exam (Primary Care) Vital Signs: Last Vital Signs Pulse 97 10/26/24 11:34 BP 104/68 10/26/24 11:34 Pulse Ox 97 10/26/24 11:34 Oxygen Delivery Method Room Air 10/26/24 11:34 BMI result Body Mass Index 24.4 Tobacco/Smoking Status: Tobacco use Status Tobacco use date assessed 10/26/24 10/26/24 11:39 Patient Tobacco Use Status Current everyday Tobacco 10/26/24 11:39 Tobacco use type Cigarette 10/26/24 11:39 e-Cigarette/Vaping Use Never Used 10/26/24 11:39 PHQ-9: PHQ-9 Score PHQ-9: Total score 3 10/26/24 11:52 Depression Screening Interpretation: Negative Thrive Assessment: Date of Thrive Assessment Date Thrive assessed 10/26/24 10/26/24 11:39 Currently or been in a relationship where the following occur: No concerns reported Const General: cooperative, healthy appearing, comfortable and no acute distress Orientation/consciousness: patient oriented x3 HENMT Head: Yes normocephalic Ears: hearing grossly normal bilaterally General nose exam: Normal external nose present Eyes General: appearance normal, both eyes and all related structures Conjunctivae: conjunctivae normal Neck Neck: Yes full ROM and Yes no lymphadenopathy Resp Effort & Inspection: normal respiratory effort Auscultation: clear to auscultation bilaterally, no crackles, no rales, no rhonchi and no wheezes Cardio Rate: regular rate Rhythm: regular rhythm Heart sounds: S1 normal heart sound present and no murmurs GI Palpation (GI): Soft to palpation and nontender Percussion: Yes normal to percussion General: Yes no CVA tenderness Back/Spine/Pelvis Back: no CVA tenderness Thoracic/Lumbar Spine: No lumbar spinal tenderness Skin General skin exam: no rashes or lesions noted Neuro General: patient oriented x3 Gait exam (Neuro): Normal gait present Extrem General: Yes normal to inspection, Yes full ROM and No edema Right upper extremity: full ROM Left upper extremity: full ROM Right lower extremity: full ROM; no edema Left lower extremity: full ROM; no edema Psych Affect: normal affect Attitude: cooperative Insight: Good insight present (Psych) Judgement: Good judgement present (Psych) Coding Level of Care Code Est Pt Level 3 (71170) Diagnoses Pure hypercholesterolemia E78.00 Impaired fasting glucose R73.01 Acquired hypothyroidism E03.9 Vitamin D deficiency E55.9 Vitamin B12 deficiency E53.8 Macrocytic anemia D53.9 Smoker F17.200 Additional Codes SIRISHA-7 Assessment Billing - SIRISHA-7 Assessment Tool: SIRISHA-7 Assessment 29603 ([id number]) PHQ-9 - 12401 - PHQ-9 Billing: Yes ([id number]) Time Spent (min) 33 Assessment & Plan Assessment & Plan (1) Pure hypercholesterolemia: Code(s): E78.00 - Pure hypercholesterolemia, unspecified Category: Medical Plan: The patient forgot to complete preordered labs-reports that she got thrown off because her appointment was rescheduled Reinforced low cholesterol diet Continue Atorvastatin 10 mg QD Reports that she will go complete her labs as soon as possible (2) Impaired fasting glucose: Code(s): R73.01 - Impaired fasting glucose Category: Medical Plan: Similarly the patient was unable to complete her preordered follow up labs Previously, Her FBS was elevated at 122 mg/dl with her HgbA1c at 5.5% Reinforced low calorie/low carb diet and exercise as tolerated We will advise when patient complete labs (3) Acquired hypothyroidism: Code(s): E03.9 - Hypothyroidism, unspecified Category: Medical Plan: Her serum TSH and free T4 level are both normal on her previous lab Patient is currently clinically euthyroid Continue Levothyroxine 150 mcg QD Complete labs as soon as you can to re-evaluate (4) Vitamin D deficiency: Code(s): E55.9 - Vitamin D deficiency, unspecified Category: Medical Plan: Continue cholecalciferol 50 mcg daily (5) Vitamin B12 deficiency: Code(s): E53.8 - Deficiency of other specified B group vitamins Category: Medical Plan: Continue Vitamin B12 1000 mcg tablets every 2 to 3 days We will re-evaluate after labs are completed (6) Macrocytic anemia: Code(s): D53.9 - Nutritional anemia, unspecified Category: Medical Plan: On her previous blood work her anemia had improved with the correction of her Vitamin B12 deficiency will continue to monitor her CBC regularly (7) Smoker: Code(s): F17.200 - Nicotine dependence, unspecified, uncomplicated Category: Social Hx Plan: Patient is counseled again on smoking cessation Per request, we will request for nicotine patch to be reordered Plan Follow up in 6 months Orders: Orders Complete Blood Count Auto Diff 6 Months E78.00 - Pure hypercholesterolemia, unspecified, R73.01 - Impaired fasting glucose, E03.9 - Hypothyroidism, unspecified, E66.9 - Obesity, unspecified, E66.3 - Overweight, E55.9 - Vitamin D deficiency, unspecified, E53.8 - Deficiency of other specified B group vitamins, Z00.00 - Encounter for general adult medical examination without abnormal findings Comprehensive Brule. Panel Fast 6 Months E78.00 - Pure hypercholesterolemia, unspecified, R73.01 - Impaired fasting glucose, E03.9 - Hypothyroidism, unspecified, E66.9 - Obesity, unspecified, E66.3 - Overweight, E55.9 - Vitamin D deficiency, unspecified, E53.8 - Deficiency of other specified B group vitamins, Z00.00 - Encounter for general adult medical examination without abnormal findings Lipid Panel 6 Months E78.00 - Pure hypercholesterolemia, unspecified, R73.01 - Impaired fasting glucose, E03.9 - Hypothyroidism, unspecified, E66.9 - Obesity, unspecified, E66.3 - Overweight, E55.9 - Vitamin D deficiency, unspecified, E53.8 - Deficiency of other specified B group vitamins, Z00.00 - Encounter for general adult medical examination without abnormal findings TSH reflex Free T4 6 Months E78.00 - Pure hypercholesterolemia, unspecified, R73.01 - Impaired fasting glucose, E03.9 - Hypothyroidism, unspecified, E66.9 - Obesity, unspecified, E66.3 - Overweight, E55.9 - Vitamin D deficiency, unspecified, E53.8 - Deficiency of other specified B group vitamins, Z00.00 - Encounter for general adult medical examination without abnormal findings UA CC w/rflx Micro + Cult 6 Months E78.00 - Pure hypercholesterolemia, unspecified, R73.01 - Impaired fasting glucose, E03.9 - Hypothyroidism, unspecified, E66.9 - Obesity, unspecified, E66.3 - Overweight, E55.9 - Vitamin D deficiency, unspecified, E53.8 - Deficiency of other specified B group vitamins, Z00.00 - Encounter for general adult medical examination without abnormal f indings Vitamin D 25-OH Total 6 Months E78.00 - Pure hypercholesterolemia, unspecified, R73.01 - Impaired fasting glucose, E03.9 - Hypothyroidism, unspecified, E66.9 - Obesity, unspecified, E66.3 - Overweight, E55.9 - Vitamin D deficiency, unspecified, E53.8 - Deficiency of other specified B group vitamins, Z00.00 - Encounter for general adult medical examination without abnormal findings Medications: Refilled nicotine 1 patch transdermal Q24H 28 ea 5RF 28 days F17.200 - Nicotine dependence, unspecified, uncomplicated nicotine 1 patch transdermal DAILY 7 ea 0RF 7 days F17.200 - Nicotine dependence, unspecified, uncomplicated nicotine 1 patch transdermal DAILY 7 ea 0RF 7 days F17.200 - Nicotine dependence, unspecified, uncomplicated
[2024-10-26 11:34] VITALS: BP 104/68; PULSE 97; O2SAT 97; BMI 24.4
== END 2024-10-26 11:56 | disposition home or self-care (01) ==
LOC: HO.HMCH 11:24
PROVIDERS: PCP Internal Medicine
DX: E78.00 Pure hypercholesterolemia, unspecified (principal); R73.01 Impaired fasting glucose; E03.9 Hypothyroidism, unspecified; E55.9 Vitamin D deficiency, unspecified; E53.8 Deficiency of other specified B group vitamins; D53.9 Nutritional anemia, unspecified; F17.200 Nicotine dependence, unspecified, uncomplicated

== ENCOUNTER → 2024-10-26 11:23 | Outpatient (BNVA) | payer OTHER, SELFPAY | PROVIDERS: PCP Internal Medicine | DX: E78.00 Pure hypercholesterolemia, unspecified (principal); R73.01 Impaired fasting glucose; E03.9 Hypothyroidism, unspecified; E55.9 Vitamin D deficiency, unspecified; D53.9 Nutritional anemia, unspecified; E53.8 Deficiency of other specified B group vitamins; F17.210 Nicotine dependence, cigarettes, uncomplicated | CPT/HCPCS: 96127; 99212 ==

== ENCOUNTER 2024-10-30 08:38 | Outpatient (REF) | payer OTHER, SELFPAY ==
[2024-10-30 09:11] LABS: MANUAL DIFF FLAG NO
[2024-10-30 09:36] LABS: Hematocrit 41.0 % (37.0-47.0); Hemoglobin 13.7 g/dl (12.0-16.0); Imm Gran Abs Auto 0.03 X10*3/uL (0.00-0.03); Imm Gran Pct Auto 0.4 % (0.0-0.4); Lymphocytes Absolute Auto 2.9 X10*3/uL (1.2-4.9); Mean Corpuscular HGB Conc 33.4 g/dl (31.0-35.0); Mean Corpuscular Hemoglobin 32.1 pg (27.0-33.0); Mean Corpuscular Volume 96.0 fL (80.0-98.0); NRBC Abs Auto 0.000 X10*3/uL (0.0-0.012); NRBC Pct Auto 0.0 /100WBC (0.0-0.2); Platelet Count 334 X10*3/uL (160-400); Red Blood Count 4.27 X10*6/uL (4.20-5.50); White Blood Count 6.8 X10*3/uL (4.8-10.8)
[2024-10-30 09:46] LABS: Hemoglobin A1C 122.9771 umol/L; Total Hemoglobin (HGBA1C) 3585.5762 umol/L
[2024-10-30 10:58] LABS: Appearance Urine Clear; Glucose Urine UA Negative (Negative); PH 6.0 (5.0-9.0); Specific Gravity - Urine <= 1.005 (1.005-1.025)
[2024-10-30 11:24] LABS: Folate 7.9 ng/mL (> or = 4.0); Vitamin B12 281 pg/mL (200-900)
[2024-10-30 11:28] LABS: Alanine Aminotransferase 18 U/L (0-31); Albumin Level 4.7 g/dL (3.5-5.0); Alkaline Phosphatase 82 U/L (39-117); Anion Gap 14 (12-20); Aspartate Amino Transferase 30 U/L (5-31); Blood Urea Nitrogen 11 mg/dL (9-16); Calcium 9.8 mg/dL (8.4-10.2); Carbon Dioxide 24 mmol/L (22-29); Chloride 105 mmol/L (96-108); Cholesterol 213 mg/dL (<200); Estimated Glomerular Filt Rate > 60; HDL Cholesterol 92 mg/dL (>40); Potassium 4.8 mmol/L (3.3-5.1); Sodium 138 mmol/L (135-145); Total Protein 7.5 g/dL (6.5-8.0); Triglycerides 87 mg/dL (<150)
[2024-10-30 11:31] LABS: Free T4 (Free Thyroxine) 1.40 ng/dL (0.71-1.85); Thyroid Stimulating Hormone 0.40 uIU/mL (0.32-4.0)
== END 2024-10-30 08:39 | disposition home or self-care (01) ==
LOC: HO.LAB 08:38
PROVIDERS: PCP Internal Medicine; Visit Provider Internal Medicine
DX: R30.0 Dysuria (principal); E03.9 Hypothyroidism, unspecified; E53.8 Deficiency of other specified B group vitamins; E55.9 Vitamin D deficiency, unspecified; E78.00 Pure hypercholesterolemia, unspecified; R73.01 Impaired fasting glucose; D64.9 Anemia, unspecified
CPT/HCPCS: 36415; 80053; 80061; 81003; 82306; 82607; 82746; 83036; 84439; 84443; 85025

== ENCOUNTER 2024-11-22 09:53 | Outpatient (REF) | payer OTHER, SELFPAY ==
--- OUTSIDE RECORDS SUMMARY | 2024-11-22 10:36 | XMS_ITS ---
Author Name [facility] Organization Unknown Encounters Encounter Type Encounter Reason Primary Diagnosis Location Date [facility] 2024 Care Team Organization Name Specialty Phone Email Start Date End [facility] 11/17/2024
== END 2024-11-22 09:54 | disposition home or self-care (01) ==
LOC: HO.MAMMO 09:53
PROVIDERS: PCP Internal Medicine; Visit Provider Internal Medicine
DX: Z12.31 Encounter for screening mammogram for malignant neoplasm of breast (principal)
CPT/HCPCS: 77063; 77067

== ENCOUNTER → 2024-11-22 10:00 | Outpatient (BNV) | payer OTHER, SELFPAY | PROVIDERS: PCP Internal Medicine; Visit Provider Internal Medicine | DX: Z12.31 Encounter for screening mammogram for malignant neoplasm of breast (principal) | CPT/HCPCS: 77063; 77067 ==

== ENCOUNTER 2025-01-03 08:14 | Outpatient (AMB) | payer OTHER, SELFPAY ==
--- NOTE | 2025-01-03 08:24 | A.OFFVIS_ITS ---
Vital Signs 01/03/25 08:26 Height 5 ft 6 in Weight 150 lb BMI 24.2 Intake Visit Reasons: New Pt- onycholysis Intake Note: Radha is a 59 year old female who presents today as a new patient for an evaluation of her bilateral onycholysis of her foot. Patient mentions she has mild pain while ambulating and has not tried OTC medications. Patient reportsshe is interested in hetting her toenails trimmed today Allergies aspirin (ASA) Allergy (Severe, Verified 01/03/25 08:29) DIFFICULTY BREATHING procaine (From Novocain) Allergy (Severe, Verified 01/03/25 08:29) DIFFICULTY BREATHING novacaine Allergy (Severe, Uncoded 10/26/24 11:41) breathing difficulty Novocain Allergy (Severe, Uncoded 10/26/24 11:41) breathing difficulty Medication List - Last Reconciled 01/03/25 by Sharon Brito DPM atorvastatin 10 mg PO QPM 90 days cholecalciferol (vitamin D3) 50 mcg PO DAILY 90 days levothyroxine 150 mcg PO DAILY 90 days nicotine 1 patch transdermal Q24H 28 days nicotine 1 patch transdermal DAILY 7 days nicotine 1 patch transdermal DAILY 7 days HPI Comments Details: The patient is a 60-year-old female presenting with thickened, elongated, and dystrophic toenails causing discomfort during ambulation. She reports difficulty in trimming her toenails due to their thickness, which has been an ongoing issue for several years. The patient previously visited a hot sealing machine operator approximately four to five years ago, but has since struggled to find consistent care. The patient has a history of varicose veins and occasionally wears compression stockings. She does not currently see a vascular specialist but is advised to monitor for worsening symptoms such as pain or cramping. The patient has been informed of a diagnosis of pre-diabetes, although her blood sugar levels and A1c are currently well-controlled. She experiences occasional numbness and tingling, primarily in her hands rather than her toes. She denies any recent pedal injuries. Denies any other pedal concerns. Denies any current nausea vomiting fever or chills. Patient was seen wearing sneakers. [facility] Medical History (Updated 01/03/25 @ 09:06 by Sharon Brito DPM) Peripheral neuropathy Prediabetes Varicose veins of both lower extremities Pain in toes of both feet Nail dystrophy Onychogryphosis Impaired fasting glucose Onychomycosis Vitamin B12 deficiency Macrocytic anemia Renal insufficiency Paresthesia Fatigue Smoker Vitamin D deficiency Pure hypercholesterolemia Acquired hypothyroidism Surgical History Hx of colonoscopy Hx of bariatric surgery Status post total abdominal hysterectomy and bilateral salpingo-oophorectomy (TAE-BSO) Family History Father Myocardial infarction Cardiovascular disease Stroke Mother Hypertension Paternal Grandfather Myocardial infarction Maternal Aunt Breast cancer Social History Housing: Apartment Alcohol intake: current Alcohol intake frequency: holidays/special occasions only Patient Tobacco Use Status: Current everyday Tobacco user Tobacco use type: Cigarette Cigarette Packs Per Day: 1 Cigarettes Per Day: 15 e-Cigarette/Vaping Use: Never Used Second Hand Smoke Exposure: Yes service: No Current occupational status: disabled Cognitive needs: No Hearing needs: No Vision needs: Yes (Glasses) Female Reproductive History Menstrual Age of Menarche: 12 Review of Systems Const Details: Musculoskeletal: Reports discomfort when walking due to thickened toenails. Denies pain during toe ROM. Neurological: Reports occasional numbness and tingling in hands. Denies numbness in toes. All systems reviewed & are unremarkable except as noted in HPI and below Physical Exam Vital Signs: BMI result Body Mass Index 24.2 Extrem Other: Bilateral lower extremity focused physical exam: Dermatological: Toenails x10 noted to be elongated, dystrophic, thickened, and discolored with subungual debris. Mild erythema patches noted to the right 5th toe extending plantarly towards the lateral midfoot of the foot, identified as a birthmark. No open lesions wounds or abrasions noted. Skin supple turgor within normal limits. No clinical signs of infection. Vascular: DP/PT pulses palpable. Capillary refill time less than 3 seconds. Varicosities noted. No edema noted. Pedal hair absent. Neurological: Protective sensation is grossly intact to the lower extremities. Musculoskeletal: Mild pain on palpation to the toes due to thickened and elongated nails. Range of motion of the forefoot within normal limits and without pain. Hammertoe deformities noted bilaterally. Range of motion of the ankles and hindfoot within normal limits. Muscle manual testing 5/5. Nonantalgic gait unassisted. Office Procedures AMB Debridement/Avulsion Podia Details: Debrided toenails X10 using a nail Nipper with no incidents. 37012-Yspvaijdadv of Nail 6+ Procedure code (CPT) selection complete Results Reviewed Results Reviewed: Patient is pre-diabetic: Laboratory Tests 10/30/24 09:10 Fasting Glucose 102 H Estimat Average Glucose 105 Hemoglobin A1c % 5.3 Assessment & Plan Assessment & Plan (1) Onychomycosis: Code(s): B35.1 - Tinea unguium Category: Medical (2) Onychogryphosis: Code(s): L60.2 - Onychogryphosis Category: Medical (3) Nail dystrophy: Code(s): L60.3 - Nail dystrophy Category: Medical (4) Pain in toes of both feet: Code(s): M79.674 - Pain in right toe(s); M79.675 - Pain in left toe(s) Category: Medical (5) Varicose veins of both lower extremities: Code(s): I83.93 - Asymptomatic varicose veins of bilateral lower extremities Category: Medical Qualifiers: Varicose vein complication: asymptomatic Qualified Code(s): I83.93 - Asymptomatic varicose veins of bilateral lower extremities (6) Prediabetes: Code(s): R73.03 - Prediabetes Category: Medical (7) Peripheral neuropathy: Code(s): G62.9 - Polyneuropathy, unspecified Category: Medical Qualifiers: Peripheral neuropathy type: polyneuropathy, unspecified Qualified Code(s): G62.9 - Polyneuropathy, unspecified Plan Patient was informed and verbally consented to the use of an ambient scribe for clinic note documentation during this visit. 1. Onychomycosis Toenails trimmed today and will be trim every nine weeks to manage the thickness and prevent discomfort. Topical antifungal treatment was discussed as an option, requiring daily application for up to a year to see improvement. Oral antifungal medication was also considered, with the need for liver function monitoring due to potential hepatic side effects. At this patient no medication is needed. Discussed the importance of not trimming her nails by herself to avoid any injuries or cuts that can worsened due to her prediabetes, as well as her numbness and tingling in the fingers. 2. Varicose Veins The patient is advised to monitor for symptoms such as pain or cramping and to wear compression stockings as needed. Referral to a vascular specialist will be considered if symptoms worsen. 3. Prediabetes The patient is advised to continue monitoring her blood sugar levels and maintain her current lifestyle to prevent progression to diabetes. She should report any increase in numbness or tingling, particularly in her feet. Advised patient to wear supportive shoe gear and avoid barefoot walking. Patient is to monitor her feet daily and keep her feet clean and dry. Patient is to return to the office in 9 weeks for routine nail care. Orders: Orders AMB Debridement/Avulsion Podiatry Today B35.1 - Tinea unguium, L60.2 - Onychogryphosis, L60.3 - Nail dystrophy, M79.674 - Pain in right toe(s), M79.675 - Pain in left toe(s) Coding Level of Care Code New Pt Level 3 (07435) Diagnoses Onychomycosis B35.1 Onychogryphosis L60.2 Nail dystrophy L60.3 Pain in toes of both feet M79.674; M79.675 Asymptomatic varicose veins of both lower extremities I83.93 Varicose vein complication: asymptomatic Prediabetes R73.03 Peripheral polyneuropathy G62.9 Peripheral neuropathy type: polyneuropathy, unspecified CPT Codes Skin Debridement - CPT: 86553-Httnduhgdzv of Nail 6+ ([id number]) Time Spent (min) 30
[2025-01-03 08:26] VITALS: BMI 24.2
== END 2025-01-03 08:51 | disposition home or self-care (01) ==
LOC: HO.HPODS 08:15
PROVIDERS: PCP Internal Medicine; Visit Provider Student in an Organized Health Care Education/Training Program
DX: B35.1 Tinea unguium (principal); L60.2 Onychogryphosis; L60.3 Nail dystrophy; M79.674 Pain in right toe(s); M79.675 Pain in left toe(s); I83.93 Asymptomatic varicose veins of bilateral lower extremities; R73.03 Prediabetes; G62.9 Polyneuropathy, unspecified
CPT/HCPCS: 11721; 99203

== ENCOUNTER → 2025-01-03 08:14 | Outpatient (BNVA) | payer OTHER, SELFPAY | PROVIDERS: PCP Internal Medicine; Visit Provider Student in an Organized Health Care Education/Training Program | DX: B35.1 Tinea unguium (principal); L60.2 Onychogryphosis; L60.3 Nail dystrophy; M79.674 Pain in right toe(s); M79.675 Pain in left toe(s); I83.93 Asymptomatic varicose veins of bilateral lower extremities; R73.03 Prediabetes; G62.9 Polyneuropathy, unspecified | CPT/HCPCS: 11721; 99202 ==

== ENCOUNTER 2025-03-05 07:45 | Outpatient (AMB) | payer OTHER, SELFPAY ==
--- NOTE | 2025-03-05 07:59 | MHC.OFFVIS ---
Vital Signs 03/05/25 08:01 Height 5 ft 6 in Weight 150 lb BMI 24.2 Intake Visit Reasons: Follow Up onycholysis Intake Note: Radha is a 60 year old female who presents today as a new patient for an evaluation of her onycholysis. During her last visit her toe nails where trimmed. Patient reports everything is going well and she has no questions or concerns at this time Allergies aspirin (ASA) Allergy (Severe, Verified 03/05/25 08:01) DIFFICULTY BREATHING procaine (From Novocain) Allergy (Severe, Verified 03/05/25 08:01) DIFFICULTY BREATHING novacaine Allergy (Severe, Uncoded 10/26/24 11:41) breathing difficulty Novocain Allergy (Severe, Uncoded 10/26/24 11:41) breathing difficulty HPI Comments Details: The patient is a 60-year-old female presenting for follow-up of tinea unguium. Patient states she experiences a very minimal and intermittent numbness and tingling to the toes. Patient is unable to tend to feed due to past medical history. She denies any current pain. She denies any new pedal injuries. She denies any other concern [facility] Medical History (Updated 03/05/25 @ 08:02 by Sharon Brito DPM) Nail disorder Peripheral neuropathy Prediabetes Varicose veins of both lower extremities Pain in toes of both feet Nail dystrophy Onychogryphosis Impaired fasting glucose Onychomycosis Vitamin B12 deficiency Macrocytic anemia Renal insufficiency Paresthesia Fatigue Smoker Vitamin D deficiency Pure hypercholesterolemia Acquired hypothyroidism Surgical History Hx of colonoscopy Hx of bariatric surgery Status post total abdominal hysterectomy and bilateral salpingo-oophorectomy (TAE-BSO) Family History Father Myocardial infarction Cardiovascular disease Stroke Mother Hypertension Paternal Grandfather Myocardial infarction Maternal Aunt Breast cancer Social History Housing: Apartment Alcohol intake: current Alcohol intake frequency: holidays/special occasions only Patient Tobacco Use Status: Current everyday Tobacco user Tobacco use type: Cigarette Cigarette Packs Per Day: 1 Cigarettes Per Day: 15 e-Cigarette/Vaping Use: Never Used Second Hand Smoke Exposure: Yes service: No Current occupational status: disabled Cognitive needs: No Hearing needs: No Vision needs: Yes (Glasses) Female Reproductive History Menstrual Age of Menarche: 12 Review of Systems Const Details: Musculoskeletal: Reports discomfort when walking due to thickened and elongated toenails. Neurological: Reports occasional and sporadic numbness and tingling to the toes. All systems reviewed & are unremarkable except as noted in HPI and below Physical Exam Vital Signs: BMI result Body Mass Index 24.2 Extrem Other: Bilateral lower extremity focused physical exam: Dermatological: Toenails x10 noted to be elongated, dystrophic, thickened, and discolored with subungual debris. Mild erythema patches noted to the right 5th toe extending plantarly towards the lateral midfoot of the foot, identified as a birthmark. No open lesions wounds or abrasions noted. Skin supple turgor within normal limits. No clinical signs of infection. No interdigital maceration or hyperkeratotic areas noted. Vascular: DP/PT pulses palpable. Capillary refill time less than 3 seconds. Varicosities noted. No edema noted. Pedal hair absent. Temperature gradient warm to warm Neurological: Protective sensation is grossly intact to the lower extremities. Musculoskeletal: No pain on palpation to the toes due to thickened and elongated nails. Range of motion of the forefoot within normal limits and without pain. Hammertoe deformities noted bilaterally. Range of motion of the ankles and hindfoot within normal limits. Muscle manual testing 5/5. Nonantalgic gait unassisted. Class B and C findings noted. Office Procedures AMB Debridement/Avulsion Podia Details: Debrided toenails times 10 using sterile nail nippers and sterile angelina tenzin with Dremel without incidents. 70498-Sdtejrenake of Nail 6+ Procedure code (CPT) selection complete Results Reviewed Results Reviewed: Patient is pre-diabetic: Laboratory Tests 10/30/24 09:10 Fasting Glucose 102 H Estimat Average Glucose 105 Hemoglobin A1c % 5.3 Assessment & Plan Assessment & Plan (1) Varicose veins of both lower extremities: Code(s): I83.93 - Asymptomatic varicose veins of bilateral lower extremities Category: Medical Qualifiers: Varicose vein complication: asymptomatic Qualified Code(s): I83.93 - Asymptomatic varicose veins of bilateral lower extremities (2) Prediabetes: Code(s): R73.03 - Prediabetes Category: Medical (3) Pain in toes of both feet: Code(s): M79.674 - Pain in right toe(s); M79.675 - Pain in left toe(s) Category: Medical (4) Onychomycosis: Code(s): B35.1 - Tinea unguium Category: Medical (5) Nail dystrophy: Code(s): L60.3 - Nail dystrophy Category: Medical (6) Nail disorder: Code(s): L60.9 - Nail disorder, unspecified Category: Medical (7) Onychogryphosis: Code(s): L60.2 - Onychogryphosis Category: Medical (8) Peripheral neuropathy: Code(s): G62.9 - Polyneuropathy, unspecified Category: Medical Qualifiers: Peripheral neuropathy type: polyneuropathy, unspecified Qualified Code(s): G62.9 - Polyneuropathy, unspecified Plan Patient was informed and verbally consented to the use of an ambient scribe for clinic note documentation during this visit. I discussed with the patient the importance of routine nail care to prevent complications. We also talked about monitoring the numbness and tingling in her feet and advised her to report any worsening of symptoms. We agreed to continue with the current care plan and scheduled a follow-up appointment in nine weeks. - Debrided toenails times 10. - Patient is to keep the feet clean and dry. - Advised patient to wear supportive shoe gear and to avoid barefoot walking. - Recommend compression stockings to be worn. RTC in 9 weeks. Orders: Orders AMB Debridement/Avulsion Podiatry Today B35.1 - Tinea unguium, I83.93 - Asymptomatic varicose veins of bilateral lower extremities, L60.3 - Nail dystrophy, L60.9 - Nail disorder, unspecified, M79.674 - Pain in right toe(s), M79.675 - Pain in left toe(s), R73.03 - Prediabetes Coding Level of Care Code Est Pt Level 3 (59893) Diagnoses Asymptomatic varicose veins of both lower extremities I83.93 Varicose vein complication: asymptomatic Prediabetes R73.03 Pain in toes of both feet M79.674; M79.675 Onychomycosis B35.1 Nail dystrophy L60.3 Nail disorder L60.9 Onychogryphosis L60.2 Peripheral polyneuropathy G62.9 Peripheral neuropathy type: polyneuropathy, unspecified CPT Codes Skin Debridement - CPT: 64773-Rrvbcqmepmi of Nail 6+ ([id number]) Time Spent (min) 30 Comment 10 mins for procedure.
[2025-03-05 08:01] VITALS: BMI 24.2
== END 2025-03-05 08:16 | disposition home or self-care (01) ==
LOC: HO.HPODS 07:45
PROVIDERS: PCP Internal Medicine; Visit Provider Student in an Organized Health Care Education/Training Program
DX: I83.93 Asymptomatic varicose veins of bilateral lower extremities (principal); R73.03 Prediabetes; M79.674 Pain in right toe(s); M79.675 Pain in left toe(s); B35.1 Tinea unguium; L60.3 Nail dystrophy; L60.9 Nail disorder, unspecified; L60.2 Onychogryphosis; G62.9 Polyneuropathy, unspecified
CPT/HCPCS: 11721; 99213

== ENCOUNTER → 2025-03-05 07:45 | Outpatient (BNVA) | payer OTHER, SELFPAY | PROVIDERS: PCP Internal Medicine; Visit Provider Student in an Organized Health Care Education/Training Program | DX: R73.03 Prediabetes (principal); I83.93 Asymptomatic varicose veins of bilateral lower extremities; M79.674 Pain in right toe(s); M79.675 Pain in left toe(s); B35.1 Tinea unguium; L60.3 Nail dystrophy; L60.9 Nail disorder, unspecified; G62.9 Polyneuropathy, unspecified | CPT/HCPCS: 11721; 99212 ==